=== PATIENT | male | born 1950 ===

== ENCOUNTER 2022-04-03 16:47 | Inpatient (IN) ==
[2022-04-03] MEDS ORDERED: hydrALAZINE 20 MG/1 ML VIAL IV PRN (22:01)
[2022-04-03] MEDS ORDERED: ONDANSETRON 4 MG/2 ML VIAL IV PRN (22:01)
[2022-04-03] MEDS ORDERED: GLUCAGON 1 MG VIAL IM PRN (22:01)
[2022-04-03] MEDS ORDERED: DEXTROSE 10% 250 ML BAG IV PRN (22:18)
[2022-04-03 22:46] LABS: Basophils # 0.1 10*3/uL (0.0-0.2); Basophils % 0.4 % (0.0-0.8); Eosinophils # 0.1 10*3/uL (0.0-0.87); Eosinophils % 0.4 % (0.00-10.9); Hematocrit 24.5 VOL% (42.0-52.0); Hemoglobin 8.1 GM/DL (14.0-18.0); Immature Granulocytes % 1.3 %; Immature Granulocytes Absolute 0.18 #; Lymphocytes # 1.2 10*3/uL (1.4-4.0); Lymphocytes % 8.5 % (21.2-54.2); Mean Corpuscular HGB Conc 33.1 GM/DL (32-36); Mean Corpuscular Volume 83.1 FL (87-102); Mean Platelet Volume 13.4 FL (9.6-12.0); Monocytes # 0.9 10*3/uL (0.11-0.8); Monocytes % 6.5 % (1.7-12.7); Neutrophils % 82.9 % (38.7-73.9); Platelet Count 141 T/CUMM (130-400); Red Blood Count 2.95 MC/CUMM (3.8-5.5); Red Cell Distribution Width 15.3 % (9.3-17.3); White Blood Count 14.3 T/CUMM (4-12)
[2022-04-03] MEDS: SODIUM CHLORIDE 0.9% 1,000 ML IV SCH (22:48)
[2022-04-03 23:10] LABS: Alanine Aminotransferase 11 U/L (16-61); Albumin 1.9 G/DL (3.4-5.0); Alkaline Phosphatase 94 U/L (45-117); Aspartate Amino Transferase 16 U/L (0-37); Bilirubin,Total < 0.39 MG/DL (0.20-1.00); Blood Urea Nitrogen 35 MG/DL (7-18); Calcium 8.1 MG/DL (8.5-10.1); Carbon Dioxide 19 MMOL/L (21-32); Chloride 113 MMOL/L (98-107); Glucose 103 MG/DL (74-106); Osmolality,Calculated 286.4 MOS/KG (273-304); Potassium 3.8 MMOL/L (3.5-5.1); Sodium 140 MMOL/L (136-145); Total Protein 6.6 G/DL (6.4-8.2)
[2022-04-03] MEDS: HEPARIN 5,000 UNIT/1 ML VIAL SUBCUT SCH (23:40)
[2022-04-04] MEDS ORDERED: VANCOMYCIN INJ 1,000 MG in SODIUM CHLORIDE 0.9% 250 ML IV ONE (04:00)
[2022-04-04] MEDS: LEVOTHYROXINE 50 MCG TABLET PO SCH (05:27)
[2022-04-04] MEDS: PIPERACILLIN/TAZOBACTAM 3.375 MG in SODIUM CHLORIDE 0.9% 100 ML IV SCH ×2 (05:27→18:02)
[2022-04-04 05:52] LABS: Basophils # 0.1 10*3/uL (0.0-0.2); Basophils % 0.4 % (0.0-0.8); Eosinophils # 0.1 10*3/uL (0.0-0.87); Eosinophils % 0.8 % (0.00-10.9); Hematocrit 26.5 VOL% (42.0-52.0); Hemoglobin 8.8 GM/DL (14.0-18.0); Immature Granulocytes % 1.7 %; Immature Granulocytes Absolute 0.26 #; Lymphocytes # 1.2 10*3/uL (1.4-4.0); Lymphocytes % 7.8 % (21.2-54.2); Mean Corpuscular HGB Conc 33.2 GM/DL (32-36); Mean Corpuscular Volume 83.9 FL (87-102); Mean Platelet Volume 13.8 FL (9.6-12.0); Monocytes # 0.8 10*3/uL (0.11-0.8); Monocytes % 5.1 % (1.7-12.7); Neutrophils % 84.2 % (38.7-73.9); Platelet Count 153 T/CUMM (130-400); Red Blood Count 3.16 MC/CUMM (3.8-5.5); Red Cell Distribution Width 15.4 % (9.3-17.3); White Blood Count 15.6 T/CUMM (4-12)
[2022-04-04 06:13] LABS: Folate 14.65 NG/ML (5.38-24.0); Vitamin B12 387 PG/ML (211-911)
[2022-04-04 07:03] LABS: Sedimentation Rate-Westergren 126 MM/HR (0-20)
[2022-04-04 08:41] LABS: Free T4 (Free Thyroxine) 0.94 NG/DL (0.76-1.46)
[2022-04-04] MEDS: INSULIN REGULAR 100 UNIT/ML SUBCUT SCH ×4 (08:43→20:42)
[2022-04-04] MEDS: METOPROLOL TARTRATE 50 MG TABLET PO SCH (08:49)
[2022-04-04] MEDS: SODIUM BICARBONATE 650 MG TABLET PO SCH ×2 (08:49→20:37)
[2022-04-04] MEDS: DOCUSATE SODIUM 100 MG CAPSULE PO SCH ×2 (08:49→20:37)
[2022-04-04] MEDS: ASPIRIN EC 81 MG TABLET PO SCH (08:49)
[2022-04-04] MEDS: MULTIVITAMIN (CENTRUM) TABLET PO SCH (08:49)
[2022-04-04] MEDS: calcitrioL 0.25 MCG CAPSULE PO SCH (08:49)
[2022-04-04] MEDS: amLODIPine 5 MG TABLET PO SCH (08:49)
[2022-04-04] MEDS: PANTOPRAZOLE 40 MG TABLET PO SCH (08:49)
[2022-04-04 14:33] LABS: Calcium 8.4 MG/DL (8.5-10.1); Osmolality,Calculated 287.5 MOS/KG (273-304); Potassium 4.2 MMOL/L (3.5-5.1)
[2022-04-04] MEDS ORDERED: LIDOCAINE 2% 5 ML VIAL ONE (16:05)
[2022-04-04] MEDS ORDERED: ONDANSETRON 4 MG/2 ML VIAL ONE (16:05)
[2022-04-04] MEDS ORDERED: propofoL 200 MG/20 ML VIAL IV ONE (16:05)
[2022-04-04] MEDS ORDERED: DEXAMETHASONE 4 MG/1 ML VIAL ONE (16:05)
[2022-04-04] MEDS ORDERED: SEVOFLURANE 1 UNIT/15 MINUTE INH ONE ×2 (16:05→16:57)
[2022-04-04] MEDS ORDERED: fentaNYL 100 MCG/2 ML VIAL ONE (16:06)
[2022-04-04] MEDS ORDERED: PHENYLEPHRINE 1 MG/10 ML SYRINGE IV ONE ×3 (16:29→16:57)
[2022-04-04] MEDS ORDERED: ACETAMINOPHEN INJ 1,000 MG/100 ML VIAL IV ONE (16:42)
[2022-04-04] MEDS ORDERED: GLUCAGON 1 MG VIAL IM PRN (18:50)
[2022-04-04] MEDS ORDERED: DEXTROSE 10% 250 ML BAG IV PRN (18:54)
[2022-04-04] MEDS: SIMVASTATIN 20 MG TABLET PO SCH (20:37)
[2022-04-04] MEDS ORDERED: INSULIN GLARGINE 100 UNIT/ML SUBCUT SCH ×3 (21:00)
[2022-04-05] MEDS: INSULIN REGULAR 100 UNIT/ML SUBCUT SCH ×6 (00:13→21:15)
[2022-04-05] MEDS ORDERED: VANCOMYCIN INJ 1,000 MG in SODIUM CHLORIDE 0.9% 250 ML IV PRN (04:00)
[2022-04-05] MEDS: PIPERACILLIN/TAZOBACTAM 3.375 MG in SODIUM CHLORIDE 0.9% 100 ML IV SCH ×2 (04:19→17:46)
[2022-04-05 04:32] LABS: Basophils % 0.1 % (0.0-0.8); Hematocrit 27.7 VOL% (42.0-52.0); Immature Granulocytes % 1.5 %; Immature Granulocytes Absolute 0.23 #; Lymphocytes # 0.7 10*3/uL (1.4-4.0); Lymphocytes % 4.6 % (21.2-54.2); Mean Corpuscular HGB Conc 32.5 GM/DL (32-36); Mean Corpuscular Volume 84.5 FL (87-102); Mean Platelet Volume 13.7 FL (9.6-12.0); Monocytes # 0.3 10*3/uL (0.11-0.8); Neutrophils % 91.8 % (38.7-73.9); Platelet Count 159 T/CUMM (130-400); Red Blood Count 3.28 MC/CUMM (3.8-5.5); Red Cell Distribution Width 15.8 % (9.3-17.3); White Blood Count 15.3 T/CUMM (4-12)
[2022-04-05 04:52] LABS: Calcium 7.8 MG/DL (8.5-10.1); Potassium 4.3 MMOL/L (3.5-5.1)
[2022-04-05 04:56] LABS: Hypochromia Slight; Lymphocytes 8 % (20-55); Microcytosis Slight; Platelet Estimate Adequate; Total Cells Counted 100
[2022-04-05] MEDS: LEVOTHYROXINE 50 MCG TABLET PO SCH (05:20)
[2022-04-05] MEDS: INSULIN GLARGINE 100 UNIT/ML SUBCUT SCH (09:16)
[2022-04-05] MEDS: PANTOPRAZOLE 40 MG TABLET PO SCH (09:18)
[2022-04-05] MEDS: MULTIVITAMIN (CENTRUM) TABLET PO SCH (09:18)
[2022-04-05] MEDS: SODIUM BICARBONATE 650 MG TABLET PO SCH ×2 (09:18→21:15)
[2022-04-05] MEDS: ASPIRIN EC 81 MG TABLET PO SCH (09:18)
[2022-04-05] MEDS: METOPROLOL TARTRATE 50 MG TABLET PO SCH (09:18)
[2022-04-05] MEDS: amLODIPine 5 MG TABLET PO SCH (09:18)
[2022-04-05] MEDS: DOCUSATE SODIUM 100 MG CAPSULE PO SCH ×2 (09:18→21:15)
[2022-04-05] MEDS: calcitrioL 0.25 MCG CAPSULE PO SCH (09:19)
[2022-04-05 09:53] LABS: Hemoglobin A1 (Alkaline) 97.9 % (96.5-98.5); Hemoglobin A2 (Alkaline) 2.1 % (1.5-3.5)
[2022-04-05] MEDS ORDERED: VANCOMYCIN INJ 1,000 MG in SODIUM CHLORIDE 0.9% 250 ML IV ONE (11:00)
[2022-04-05] MEDS: SODIUM CHLORIDE 0.9% 1,000 ML IV SCH ×2 (12:13→14:26)
[2022-04-05] MEDS: SODIUM HYPOCHLORITE 0.25% IRRIG 473 ML BOTTLE TOP SCH (19:24)
[2022-04-05] MEDS ORDERED: INSULIN DETEMIR 100 UNIT/ML SUBCUT SCH (21:00)
[2022-04-05] MEDS: SIMVASTATIN 20 MG TABLET PO SCH (21:15)
[2022-04-06 04:56] LABS: Basophils # 0.1 10*3/uL (0.0-0.2); Basophils % 0.3 % (0.0-0.8); Eosinophils # 0.1 10*3/uL (0.0-0.87); Eosinophils % 0.8 % (0.00-10.9); Hematocrit 27.5 VOL% (42.0-52.0); Hemoglobin 8.9 GM/DL (14.0-18.0); Immature Granulocytes % 1.8 %; Immature Granulocytes Absolute 0.31 #; Lymphocytes # 1.4 10*3/uL (1.4-4.0); Lymphocytes % 8.4 % (21.2-54.2); Mean Corpuscular HGB Conc 32.4 GM/DL (32-36); Mean Corpuscular Volume 83.6 FL (87-102); Mean Platelet Volume 12.8 FL (9.6-12.0); Monocytes # 0.7 10*3/uL (0.11-0.8); Monocytes % 4.2 % (1.7-12.7); Neutrophils % 84.5 % (38.7-73.9); Platelet Count 191 T/CUMM (130-400); Red Blood Count 3.29 MC/CUMM (3.8-5.5); White Blood Count 16.9 T/CUMM (4-12)
[2022-04-06 05:14] LABS: Risk Ratio 10.55; VLDL Cholesterol 56.8 MG/DL
[2022-04-06 05:15] LABS: % Iron Saturation 19.9 % (18-50)
[2022-04-06 05:21] LABS: Calcium 8.1 MG/DL (8.5-10.1); Osmolality,Calculated 292.4 MOS/KG (273-304); Potassium 3.7 MMOL/L (3.5-5.1)
[2022-04-06] MEDS: PIPERACILLIN/TAZOBACTAM 3.375 MG in SODIUM CHLORIDE 0.9% 100 ML IV SCH ×2 (05:46→18:16)
[2022-04-06] MEDS: SODIUM CHLORIDE 0.9% 1,000 ML IV SCH (05:46)
[2022-04-06] MEDS: LEVOTHYROXINE 50 MCG TABLET PO SCH (05:46)
[2022-04-06 06:18] LABS: Mucus,Urine Occasional /LPF (Occasional); RBC,Urine 1 /HPF (0-4); Sperm,Urine Occasional /HPF (Negative); Squamous Epithelial Cell,Urine Occasional /HPF (0-10)
[2022-04-06 06:29] LABS: Glucose,Urine (UA) 100 mg/dL (Negative); Ketones,Urine Negative (Negative); Nitrite,Urine Negative (Negative); Protein,Urine >=300 mg/dL (Negative); Urine Appearance Clear (Clear); Urine Color Yellow (Yellow); Urine pH 5.5 (4.5-8.0)
[2022-04-06 06:30] LABS: Bilirubin,Urine Negative (Negative); Blood, Urine Trace mg/dL (Negative); Urine Urobilinogen 0.2 eU/dL (<2.0)
[2022-04-06] MEDS: INSULIN REGULAR 100 UNIT/ML SUBCUT SCH ×4 (07:42→20:40)
[2022-04-06] MEDS: PANTOPRAZOLE 40 MG TABLET PO SCH (09:02)
[2022-04-06] MEDS: ASPIRIN EC 81 MG TABLET PO SCH (09:03)
[2022-04-06] MEDS: METOPROLOL TARTRATE 50 MG TABLET PO SCH (09:03)
[2022-04-06] MEDS: amLODIPine 5 MG TABLET PO SCH (09:03)
[2022-04-06] MEDS: FERROUS SULFATE 325 MG TABLET PO SCH ×2 (09:03→20:39)
[2022-04-06] MEDS: calcitrioL 0.25 MCG CAPSULE PO SCH (09:03)
[2022-04-06] MEDS: MULTIVITAMIN (CENTRUM) TABLET PO SCH (09:03)
[2022-04-06] MEDS: DOCUSATE SODIUM 100 MG CAPSULE PO SCH ×2 (09:03→20:42)
[2022-04-06] MEDS: SODIUM HYPOCHLORITE 0.25% IRRIG 473 ML BOTTLE TOP SCH (09:03)
[2022-04-06] MEDS: SODIUM BICARBONATE 650 MG TABLET PO SCH ×3 (09:04→20:39)
[2022-04-06] MEDS: INSULIN GLARGINE 100 UNIT/ML SUBCUT SCH (09:05)
[2022-04-06] MEDS ORDERED: SODIUM CHLORIDE 0.45% 1,000 ML IV SCH (11:30)
[2022-04-06] MEDS ORDERED: DIAZEPAM 5 MG TABLET PO ONE (12:00)
[2022-04-06] MEDS ORDERED: MIDAZOLAM 2 MG/2 ML VIAL IV ONE (12:00)
[2022-04-06] MEDS ORDERED: fentaNYL 100 MCG/2 ML VIAL IV ONE (12:00)
[2022-04-06] MEDS ORDERED: HEPARIN/NACL 0.9% 2 UNITS/ML 4,000 UNIT/2,000 ML BAG IV ONE (13:22)
[2022-04-06] MEDS ORDERED: HEPARIN 5,000 UNIT/1 ML VIAL ONE (13:30)
[2022-04-06] MEDS ORDERED: HEPARIN 5,000 UNIT/1 ML VIAL IV ONE (15:00)
[2022-04-06] MEDS ORDERED: HEPARIN 1,000 UNIT/1 ML VIAL ONE (15:30)
[2022-04-06] MEDS ORDERED: HEPARIN 5,000 UNIT/1 ML VIAL IV STA (15:30)
[2022-04-06] MEDS: PIPERACILLIN/TAZOBACTAM 3,375 MG in SODIUM CHLORIDE 0.9% 100 ML IV SCH (17:50)
[2022-04-06] MEDS: SIMVASTATIN 20 MG TABLET PO SCH (20:39)
[2022-04-07] MEDS: LEVOTHYROXINE 50 MCG TABLET PO SCH (05:19)
[2022-04-07 05:21] LABS: Protein/Creatinine Ratio,Urine 4.8 RATIO
[2022-04-07 05:54] LABS: Basophils # 0.1 10*3/uL (0.0-0.2); Basophils % 0.6 % (0.0-0.8); Eosinophils # 0.3 10*3/uL (0.0-0.87); Eosinophils % 2.4 % (0.00-10.9); Hematocrit 25.2 VOL% (42.0-52.0); Hemoglobin 8.1 GM/DL (14.0-18.0); Immature Granulocytes Absolute 0.48 #; Lymphocytes % 8.5 % (21.2-54.2); Mean Corpuscular HGB Conc 32.1 GM/DL (32-36); Mean Corpuscular Volume 84.3 FL (87-102); Mean Platelet Volume 12.8 FL (9.6-12.0); Monocytes # 0.5 10*3/uL (0.11-0.8); Monocytes % 4.2 % (1.7-12.7); Neutrophils % 80.3 % (38.7-73.9); Platelet Count 184 T/CUMM (130-400); Red Blood Count 2.99 MC/CUMM (3.8-5.5); Red Cell Distribution Width 16.1 % (9.3-17.3)
[2022-04-07] MEDS: PIPERACILLIN/TAZOBACTAM 3,375 MG in SODIUM CHLORIDE 0.9% 100 ML IV SCH ×2 (06:08→17:54)
[2022-04-07 06:13] LABS: Phosphorous 3.4 MG/DL (2.5-4.9); Uric Acid 7.6 MG/DL (3.5-7.2)
[2022-04-07 07:22] LABS: Hepatitis B Surface Ag Result Non-Reactive (NonReactive); Hepatitis C Virus Ab Quant 0.24 Index; Hepatitis C Virus Ab Result Non-Reactive (NonReactive)
[2022-04-07 07:39] LABS: Calcium 7.6 MG/DL (8.5-10.1); Potassium 3.6 MMOL/L (3.5-5.1)
[2022-04-07] MEDS: INSULIN REGULAR 100 UNIT/ML SUBCUT SCH ×4 (07:54→20:35)
[2022-04-07] MEDS ORDERED: VANCOMYCIN INJ 1,000 MG in SODIUM CHLORIDE 0.9% 250 ML IV ONE (09:00)
[2022-04-07] MEDS: amLODIPine 5 MG TABLET PO SCH (09:56)
[2022-04-07] MEDS: METOPROLOL TARTRATE 50 MG TABLET PO SCH (09:56)
[2022-04-07] MEDS: INSULIN GLARGINE 100 UNIT/ML SUBCUT SCH (13:22)
[2022-04-07] MEDS: DOCUSATE SODIUM 100 MG CAPSULE PO SCH ×2 (13:46→20:36)
[2022-04-07] MEDS: FERROUS SULFATE 325 MG TABLET PO SCH ×2 (13:46→20:36)
[2022-04-07] MEDS: SODIUM BICARBONATE 650 MG TABLET PO SCH ×3 (13:47→20:35)
[2022-04-07] MEDS: SODIUM HYPOCHLORITE 0.25% IRRIG 473 ML BOTTLE TOP SCH (14:00)
[2022-04-07] MEDS: MULTIVITAMIN (CENTRUM) TABLET PO SCH (14:15)
[2022-04-07] MEDS: PANTOPRAZOLE 40 MG TABLET PO SCH (14:15)
[2022-04-07] MEDS: calcitrioL 0.25 MCG CAPSULE PO SCH (14:15)
[2022-04-07] MEDS: ASPIRIN EC 81 MG TABLET PO SCH (14:15)
[2022-04-07] MEDS: POLYETHYLENE GLYCOL POWDER 17 GM PACK PO SCH (14:48)
[2022-04-07] MEDS: SIMVASTATIN 40 MG TABLET PO SCH (20:35)
[2022-04-07] MEDS: HEPARIN 5,000 UNIT/1 ML VIAL SUBCUT SCH (23:25)
[2022-04-08] MEDS: LEVOTHYROXINE 50 MCG TABLET PO SCH (05:28)
[2022-04-08] MEDS: PIPERACILLIN/TAZOBACTAM 3,375 MG in SODIUM CHLORIDE 0.9% 100 ML IV SCH ×2 (05:28→17:31)
[2022-04-08 05:45] LABS: Basophils # 0.1 10*3/uL (0.0-0.2); Basophils % 0.6 % (0.0-0.8); Eosinophils # 0.2 10*3/uL (0.0-0.87); Eosinophils % 1.9 % (0.00-10.9); Hematocrit 23.8 VOL% (42.0-52.0); Hemoglobin 7.6 GM/DL (14.0-18.0); Immature Granulocytes % 3.1 %; Immature Granulocytes Absolute 0.33 #; Lymphocytes # 1.2 10*3/uL (1.4-4.0); Mean Corpuscular HGB Conc 31.9 GM/DL (32-36); Mean Corpuscular Volume 85.6 FL (87-102); Mean Platelet Volume 12.5 FL (9.6-12.0); Monocytes # 0.5 10*3/uL (0.11-0.8); Monocytes % 5.1 % (1.7-12.7); Neutrophils % 78.3 % (38.7-73.9); Platelet Count 192 T/CUMM (130-400); Red Blood Count 2.78 MC/CUMM (3.8-5.5); White Blood Count 10.7 T/CUMM (4-12)
[2022-04-08 06:10] LABS: Calcium 7.8 MG/DL (8.5-10.1); Potassium 3.9 MMOL/L (3.5-5.1)
[2022-04-08] MEDS: INSULIN REGULAR 100 UNIT/ML SUBCUT SCH ×4 (07:41→22:20)
[2022-04-08] MEDS: FERROUS SULFATE 325 MG TABLET PO SCH ×2 (09:36→22:12)
[2022-04-08] MEDS: calcitrioL 0.25 MCG CAPSULE PO SCH (09:36)
[2022-04-08] MEDS: METOPROLOL TARTRATE 50 MG TABLET PO SCH (09:36)
[2022-04-08] MEDS: ASPIRIN EC 81 MG TABLET PO SCH (09:36)
[2022-04-08] MEDS: PANTOPRAZOLE 40 MG TABLET PO SCH (09:36)
[2022-04-08] MEDS: amLODIPine 10 MG TABLET PO SCH (09:36)
[2022-04-08] MEDS: DOCUSATE SODIUM 100 MG CAPSULE PO SCH ×2 (09:36→22:12)
[2022-04-08] MEDS: MULTIVITAMIN (CENTRUM) TABLET PO SCH (09:36)
[2022-04-08] MEDS: SODIUM BICARBONATE 650 MG TABLET PO SCH ×3 (09:36→22:13)
[2022-04-08] MEDS: SODIUM HYPOCHLORITE 0.25% IRRIG 473 ML BOTTLE TOP SCH (09:36)
[2022-04-08] MEDS: INSULIN GLARGINE 100 UNIT/ML SUBCUT SCH (09:37)
[2022-04-08] MEDS: POLYETHYLENE GLYCOL POWDER 17 GM PACK PO SCH (09:37)
[2022-04-08] MEDS: HEPARIN 5,000 UNIT/1 ML VIAL SUBCUT SCH ×2 (13:10→22:13)
[2022-04-08] MEDS: SIMVASTATIN 40 MG TABLET PO SCH (22:12)
[2022-04-09 05:27] LABS: Basophils # 0.1 10*3/uL (0.0-0.2); Basophils % 0.5 % (0.0-0.8); Eosinophils # 0.2 10*3/uL (0.0-0.87); Hematocrit 23.2 VOL% (42.0-52.0); Hemoglobin 7.5 GM/DL (14.0-18.0); Immature Granulocytes % 3.7 %; Lymphocytes % 9.3 % (21.2-54.2); Mean Corpuscular HGB Conc 32.3 GM/DL (32-36); Mean Corpuscular Volume 85.3 FL (87-102); Monocytes # 0.5 10*3/uL (0.11-0.8); Monocytes % 4.9 % (1.7-12.7); Neutrophils % 79.6 % (38.7-73.9); Platelet Count 201 T/CUMM (130-400); Red Blood Count 2.72 MC/CUMM (3.8-5.5); White Blood Count 10.8 T/CUMM (4-12)
[2022-04-09 05:35] LABS: Calcium 7.9 MG/DL (8.5-10.1); Osmolality,Calculated 291.7 MOS/KG (273-304); Potassium 3.6 MMOL/L (3.5-5.1)
[2022-04-09] MEDS: LEVOTHYROXINE 50 MCG TABLET PO SCH (06:02)
[2022-04-09] MEDS: PIPERACILLIN/TAZOBACTAM 3,375 MG in SODIUM CHLORIDE 0.9% 100 ML IV SCH ×2 (06:02→17:30)
[2022-04-09] MEDS: POLYETHYLENE GLYCOL POWDER 17 GM PACK PO SCH (09:10)
[2022-04-09] MEDS: FERROUS SULFATE 325 MG TABLET PO SCH ×2 (09:11→21:31)
[2022-04-09] MEDS: ASPIRIN EC 81 MG TABLET PO SCH (09:11)
[2022-04-09] MEDS: MULTIVITAMIN (CENTRUM) TABLET PO SCH (09:11)
[2022-04-09] MEDS: PANTOPRAZOLE 40 MG TABLET PO SCH (09:11)
[2022-04-09] MEDS: INSULIN GLARGINE 100 UNIT/ML SUBCUT SCH (09:11)
[2022-04-09] MEDS: METOPROLOL TARTRATE 50 MG TABLET PO SCH (09:11)
[2022-04-09] MEDS: calcitrioL 0.25 MCG CAPSULE PO SCH (09:12)
[2022-04-09] MEDS: amLODIPine 10 MG TABLET PO SCH (09:12)
[2022-04-09] MEDS: DOCUSATE SODIUM 100 MG CAPSULE PO SCH ×2 (09:12→21:31)
[2022-04-09] MEDS: SODIUM BICARBONATE 650 MG TABLET PO SCH ×3 (09:12→21:31)
[2022-04-09] MEDS ORDERED: VANCOMYCIN INJ 1,000 MG in SODIUM CHLORIDE 0.9% 250 ML IV ONE (10:00)
[2022-04-09] MEDS: SODIUM HYPOCHLORITE 0.25% IRRIG 473 ML BOTTLE TOP SCH (10:36)
[2022-04-09] MEDS: INSULIN REGULAR 100 UNIT/ML SUBCUT SCH ×4 (10:36→21:35)
[2022-04-09] MEDS: HEPARIN 5,000 UNIT/1 ML VIAL SUBCUT SCH ×2 (12:53→22:24)
[2022-04-09] MEDS: SIMVASTATIN 40 MG TABLET PO SCH (22:24)
[2022-04-10] MEDS: PIPERACILLIN/TAZOBACTAM 3,375 MG in SODIUM CHLORIDE 0.9% 100 ML IV SCH ×2 (05:04→18:16)
[2022-04-10] MEDS: LEVOTHYROXINE 50 MCG TABLET PO SCH (05:04)
[2022-04-10 05:49] LABS: Basophils % 0.4 % (0.0-0.8); Eosinophils # 0.2 10*3/uL (0.0-0.87); Eosinophils % 2.1 % (0.00-10.9); Hematocrit 22.9 VOL% (42.0-52.0); Hemoglobin 7.3 GM/DL (14.0-18.0); Immature Granulocytes % 3.3 %; Immature Granulocytes Absolute 0.31 #; Lymphocytes % 11.1 % (21.2-54.2); Mean Corpuscular HGB Conc 31.9 GM/DL (32-36); Mean Corpuscular Volume 85.1 FL (87-102); Mean Platelet Volume 12.1 FL (9.6-12.0); Monocytes # 0.6 10*3/uL (0.11-0.8); Monocytes % 6.3 % (1.7-12.7); Neutrophils % 76.8 % (38.7-73.9); Platelet Count 204 T/CUMM (130-400); Red Blood Count 2.69 MC/CUMM (3.8-5.5); Red Cell Distribution Width 16.1 % (9.3-17.3); White Blood Count 9.4 T/CUMM (4-12)
[2022-04-10 06:04] LABS: Calcium 8.1 MG/DL (8.5-10.1); Potassium 3.8 MMOL/L (3.5-5.1)
[2022-04-10] MEDS: INSULIN REGULAR 100 UNIT/ML SUBCUT SCH ×4 (08:08→21:46)
[2022-04-10] MEDS: INSULIN GLARGINE 100 UNIT/ML SUBCUT SCH (09:47)
[2022-04-10] MEDS: MULTIVITAMIN (CENTRUM) TABLET PO SCH (09:58)
[2022-04-10] MEDS: METOPROLOL TARTRATE 50 MG TABLET PO SCH (09:58)
[2022-04-10] MEDS: ASPIRIN EC 81 MG TABLET PO SCH (09:58)
[2022-04-10] MEDS: amLODIPine 10 MG TABLET PO SCH (09:58)
[2022-04-10] MEDS: DOCUSATE SODIUM 100 MG CAPSULE PO SCH ×2 (09:58→21:46)
[2022-04-10] MEDS: SODIUM HYPOCHLORITE 0.25% IRRIG 473 ML BOTTLE TOP SCH (09:58)
[2022-04-10] MEDS: PANTOPRAZOLE 40 MG TABLET PO SCH (09:58)
[2022-04-10] MEDS: SODIUM BICARBONATE 650 MG TABLET PO SCH ×3 (09:58→21:46)
[2022-04-10] MEDS: FERROUS SULFATE 325 MG TABLET PO SCH ×2 (09:58→21:46)
[2022-04-10] MEDS: HEPARIN 5,000 UNIT/1 ML VIAL SUBCUT SCH (10:01)
[2022-04-10] MEDS: calcitrioL 0.25 MCG CAPSULE PO SCH (10:01)
[2022-04-10] MEDS: POLYETHYLENE GLYCOL POWDER 17 GM PACK PO SCH (10:01)
[2022-04-10] MEDS ORDERED: SODIUM CHLORIDE 0.9% 1,000 ML IV PRN (12:34)
[2022-04-10] MEDS: SIMVASTATIN 40 MG TABLET PO SCH (21:46)
[2022-04-11 05:21] LABS: Basophils # 0.1 10*3/uL (0.0-0.2); Basophils % 0.5 % (0.0-0.8); Eosinophils # 0.2 10*3/uL (0.0-0.87); Eosinophils % 1.9 % (0.00-10.9); Hematocrit 28.4 VOL% (42.0-52.0); Hemoglobin 9.3 GM/DL (14.0-18.0); Immature Granulocytes Absolute 0.38 #; Lymphocytes % 10.6 % (21.2-54.2); Mean Corpuscular HGB Conc 32.7 GM/DL (32-36); Mean Platelet Volume 11.6 FL (9.6-12.0); Monocytes # 0.7 10*3/uL (0.11-0.8); Monocytes % 7.8 % (1.7-12.7); Neutrophils % 75.2 % (38.7-73.9); Platelet Count 216 T/CUMM (130-400); Red Blood Count 3.34 MC/CUMM (3.8-5.5); Red Cell Distribution Width 15.7 % (9.3-17.3); White Blood Count 9.4 T/CUMM (4-12)
[2022-04-11 05:32] LABS: Calcium 8.3 MG/DL (8.5-10.1); Osmolality,Calculated 285.1 MOS/KG (273-304); Potassium 3.8 MMOL/L (3.5-5.1)
[2022-04-11 05:49] LABS: Platelet Estimate Adequate; Polychromasia 1+
[2022-04-11] MEDS: PIPERACILLIN/TAZOBACTAM 3,375 MG in SODIUM CHLORIDE 0.9% 100 ML IV SCH ×2 (06:01→18:26)
[2022-04-11] MEDS: LEVOTHYROXINE 50 MCG TABLET PO SCH (06:01)
[2022-04-11] MEDS: INSULIN REGULAR 100 UNIT/ML SUBCUT SCH ×4 (07:58→20:30)
[2022-04-11] MEDS: METOPROLOL TARTRATE 50 MG TABLET PO SCH (08:05)
[2022-04-11] MEDS: amLODIPine 10 MG TABLET PO SCH (08:05)
[2022-04-11] MEDS: calcitrioL 0.25 MCG CAPSULE PO SCH (08:05)
[2022-04-11] MEDS ORDERED: propofoL 200 MG/20 ML VIAL IV ONE (08:19)
[2022-04-11] MEDS ORDERED: fentaNYL 100 MCG/2 ML VIAL ONE (08:19)
[2022-04-11] MEDS ORDERED: LIDOCAINE 2% 5 ML VIAL ONE (08:19)
[2022-04-11] MEDS: POLYETHYLENE GLYCOL POWDER 17 GM PACK PO SCH (08:20)
[2022-04-11] MEDS ORDERED: BUPIVACAINE MPF 0.25% 10 ML VIAL ONE (08:28)
[2022-04-11] MEDS ORDERED: SODIUM CHLORIDE 0.9% 250 ML IV SCH (09:00)
[2022-04-11] MEDS ORDERED: SEVOFLURANE 1 UNIT/15 MINUTE INH ONE (09:29)
[2022-04-11] MEDS ORDERED: ALBUTEROL/IPRATROPIUM 3 ML NEB RESP TX ONE ×2 (09:41→09:43)
[2022-04-11] MEDS: ASPIRIN EC 81 MG TABLET PO SCH (10:37)
[2022-04-11] MEDS: SODIUM HYPOCHLORITE 0.25% IRRIG 473 ML BOTTLE TOP SCH (10:37)
[2022-04-11] MEDS: INSULIN GLARGINE 100 UNIT/ML SUBCUT SCH (10:37)
[2022-04-11] MEDS: SODIUM BICARBONATE 650 MG TABLET PO SCH ×3 (10:44→20:30)
[2022-04-11] MEDS: MULTIVITAMIN (CENTRUM) TABLET PO SCH (10:44)
[2022-04-11] MEDS: FERROUS SULFATE 325 MG TABLET PO SCH ×2 (10:44→20:30)
[2022-04-11] MEDS: PANTOPRAZOLE 40 MG TABLET PO SCH (10:45)
[2022-04-11] MEDS: DOCUSATE SODIUM 100 MG CAPSULE PO SCH ×2 (10:46→20:30)
[2022-04-11] MEDS: ACETAMINOPHEN 325 MG TABLET PO PRN ×2 (11:48→20:30)
[2022-04-11] MEDS ORDERED: VANCOMYCIN INJ 1,000 MG in SODIUM CHLORIDE 0.9% 250 ML IV ONE (13:00)
[2022-04-11] MEDS: SIMVASTATIN 40 MG TABLET PO SCH (20:30)
[2022-04-12 04:43] LABS: Basophils % 0.5 % (0.0-0.8); Eosinophils # 0.2 10*3/uL (0.0-0.87); Eosinophils % 2.8 % (0.00-10.9); Hematocrit 27.1 VOL% (42.0-52.0); Hemoglobin 8.8 GM/DL (14.0-18.0); Immature Granulocytes % 3.7 %; Immature Granulocytes Absolute 0.28 #; Lymphocytes # 0.9 10*3/uL (1.4-4.0); Lymphocytes % 11.3 % (21.2-54.2); Mean Corpuscular HGB Conc 32.5 GM/DL (32-36); Mean Corpuscular Volume 86.3 FL (87-102); Mean Platelet Volume 11.6 FL (9.6-12.0); Monocytes # 0.6 10*3/uL (0.11-0.8); Neutrophils % 73.7 % (38.7-73.9); Platelet Count 229 T/CUMM (130-400); Red Blood Count 3.14 MC/CUMM (3.8-5.5); Red Cell Distribution Width 15.7 % (9.3-17.3); White Blood Count 7.6 T/CUMM (4-12)
[2022-04-12 05:12] LABS: Albumin 1.9 G/DL (3.4-5.0); Bilirubin,Total 0.4 MG/DL (0.20-1.00); Calcium 8.2 MG/DL (8.5-10.1); Osmolality,Calculated 284.3 MOS/KG (273-304); Total Protein 7.1 G/DL (6.4-8.2)
[2022-04-12] MEDS: LEVOTHYROXINE 50 MCG TABLET PO SCH (05:49)
[2022-04-12] MEDS: PIPERACILLIN/TAZOBACTAM 3,375 MG in SODIUM CHLORIDE 0.9% 100 ML IV SCH (05:49)
[2022-04-12] MEDS: INSULIN REGULAR 100 UNIT/ML SUBCUT SCH ×3 (07:35→15:58)
[2022-04-12] MEDS: INSULIN GLARGINE 100 UNIT/ML SUBCUT SCH (10:17)
[2022-04-12] MEDS: MULTIVITAMIN (CENTRUM) TABLET PO SCH (10:17)
[2022-04-12] MEDS: SODIUM HYPOCHLORITE 0.25% IRRIG 473 ML BOTTLE TOP SCH (10:17)
[2022-04-12] MEDS: FERROUS SULFATE 325 MG TABLET PO SCH ×2 (10:17→22:30)
[2022-04-12] MEDS: DOCUSATE SODIUM 100 MG CAPSULE PO SCH ×2 (10:17→22:30)
[2022-04-12] MEDS: ASPIRIN EC 81 MG TABLET PO SCH (10:17)
[2022-04-12] MEDS: SODIUM BICARBONATE 650 MG TABLET PO SCH ×3 (10:18→22:30)
[2022-04-12] MEDS: HEPARIN 5,000 UNIT/1 ML VIAL SUBCUT SCH (10:18)
[2022-04-12] MEDS: amLODIPine 10 MG TABLET PO SCH (10:18)
[2022-04-12] MEDS: POLYETHYLENE GLYCOL POWDER 17 GM PACK PO SCH (10:18)
[2022-04-12] MEDS: PANTOPRAZOLE 40 MG TABLET PO SCH (10:18)
[2022-04-12] MEDS: calcitrioL 0.25 MCG CAPSULE PO SCH (10:18)
[2022-04-12] MEDS: METOPROLOL TARTRATE 50 MG TABLET PO SCH (10:18)
[2022-04-12 14:10] LABS: Hematocrit 26.7 VOL% (42.0-52.0); Hemoglobin 8.8 GM/DL (14.0-18.0)
[2022-04-12] MEDS: SIMVASTATIN 40 MG TABLET PO SCH (22:30)
[2022-04-13] MEDS: INSULIN REGULAR 100 UNIT/ML SUBCUT SCH ×5 (01:02→16:24)
[2022-04-13] MEDS: HEPARIN 5,000 UNIT/1 ML VIAL SUBCUT SCH ×2 (01:03→12:45)
[2022-04-13] MEDS: LEVOTHYROXINE 50 MCG TABLET PO SCH (05:01)
[2022-04-13 05:16] LABS: Basophils # 0.1 10*3/uL (0.0-0.2); Basophils % 0.7 % (0.0-0.8); Eosinophils # 0.3 10*3/uL (0.0-0.87); Hematocrit 25.1 VOL% (42.0-52.0); Hemoglobin 8.3 GM/DL (14.0-18.0); Immature Granulocytes % 2.2 %; Immature Granulocytes Absolute 0.18 #; Lymphocytes # 1.1 10*3/uL (1.4-4.0); Lymphocytes % 13.4 % (21.2-54.2); Mean Corpuscular HGB Conc 33.1 GM/DL (32-36); Mean Corpuscular Volume 85.7 FL (87-102); Mean Platelet Volume 11.4 FL (9.6-12.0); Monocytes # 0.6 10*3/uL (0.11-0.8); Monocytes % 7.6 % (1.7-12.7); Neutrophils % 73.1 % (38.7-73.9); Platelet Count 246 T/CUMM (130-400); Red Blood Count 2.93 MC/CUMM (3.8-5.5); Red Cell Distribution Width 15.7 % (9.3-17.3); White Blood Count 8.3 T/CUMM (4-12)
[2022-04-13 05:40] LABS: Calcium 8.2 MG/DL (8.5-10.1); Osmolality,Calculated 281.5 MOS/KG (273-304)
[2022-04-13] MEDS: amLODIPine 10 MG TABLET PO SCH (08:51)
[2022-04-13] MEDS: PANTOPRAZOLE 40 MG TABLET PO SCH (08:52)
[2022-04-13] MEDS: SODIUM BICARBONATE 650 MG TABLET PO SCH ×2 (08:52→16:24)
[2022-04-13] MEDS: calcitrioL 0.25 MCG CAPSULE PO SCH (08:52)
[2022-04-13] MEDS: METOPROLOL TARTRATE 50 MG TABLET PO SCH (08:52)
[2022-04-13] MEDS: MULTIVITAMIN (CENTRUM) TABLET PO SCH (08:52)
[2022-04-13] MEDS: FERROUS SULFATE 325 MG TABLET PO SCH (08:52)
[2022-04-13] MEDS: ASPIRIN EC 81 MG TABLET PO SCH (08:53)
[2022-04-13] MEDS: INSULIN GLARGINE 100 UNIT/ML SUBCUT SCH (08:54)
[2022-04-13] MEDS: DOCUSATE SODIUM 100 MG CAPSULE PO SCH (08:56)
[2022-04-13] MEDS: SODIUM HYPOCHLORITE 0.25% IRRIG 473 ML BOTTLE TOP SCH (08:56)
[2022-04-13] MEDS: POLYETHYLENE GLYCOL POWDER 17 GM PACK PO SCH (08:56)
[2022-04-13 16:04] VITALS: BP 124/64
== END 2022-04-13 17:33 | disposition home health service (06) | DRG 240 ==
LOC: N.5E 20:41 → SUATTDRO 20:41
PROVIDERS: ADMIT Internal Medicine; ATTEND Emergency Medicine

== ENCOUNTER 2022-06-07 15:39 | Inpatient (IN) ==
[2022-06-07] MEDS ORDERED: DOCUSATE SODIUM 100 MG CAPSULE PO PRN (17:57)
[2022-06-07] MEDS ORDERED: GLUCAGON 1 MG VIAL IM PRN (17:57)
[2022-06-07] MEDS ORDERED: ACETAMINOPHEN 325 MG TABLET PO PRN (17:57)
[2022-06-07] MEDS ORDERED: traZODone 50 MG TABLET PO PRN (17:57)
[2022-06-07] MEDS ORDERED: ONDANSETRON 4 MG/2 ML VIAL IV PRN (17:57)
[2022-06-07] MEDS ORDERED: DEXTROSE 10% 250 ML BAG IV PRN (17:57)
[2022-06-07] MEDS ORDERED: hydrALAZINE 20 MG/1 ML VIAL IV PRN (17:57)
[2022-06-07] MEDS ORDERED: DEXTROSE 50% 25 GM/50 ML VIAL IV PRN (18:01)
[2022-06-07] MEDS: PIPERACILLIN/TAZOBACTAM 3,375 MG in SODIUM CHLORIDE 0.9% 100 ML IV SCH (18:36)
[2022-06-07] MEDS: INSULIN REGULAR 100 UNIT/ML SUBCUT SCH (20:07)
[2022-06-07] MEDS: HEPARIN 5,000 UNIT/1 ML VIAL SUBCUT SCH (20:52)
[2022-06-07] MEDS ORDERED: SODIUM CHLORIDE 0.9% 1,000 ML IV PRN (21:31)
[2022-06-07 22:16] LABS: Hematocrit 17.1 VOL% (42.0-52.0); Hemoglobin 5.1 GM/DL (14.0-18.0)
[2022-06-07] MEDS ORDERED: VANCOMYCIN INJ 1,000 MG in SODIUM CHLORIDE 0.9% 250 ML IV PRN (23:00)
[2022-06-08 05:03] LABS: Basophils # 0.1 10*3/uL (0.0-0.2); Basophils % 0.7 % (0.0-0.8); Eosinophils # 0.1 10*3/uL (0.0-0.87); Eosinophils % 1.2 % (0.00-10.9); Hematocrit 24.6 VOL% (42.0-52.0); Hemoglobin 7.7 GM/DL (14.0-18.0); Immature Granulocytes % 1.2 %; Immature Granulocytes Absolute 0.13 #; Lymphocytes # 1.1 10*3/uL (1.4-4.0); Lymphocytes % 9.7 % (21.2-54.2); Mean Corpuscular HGB Conc 31.3 GM/DL (32-36); Mean Corpuscular Volume 84.5 FL (87-102); Mean Platelet Volume 11.4 FL (9.6-12.0); Monocytes # 0.6 10*3/uL (0.11-0.8); Monocytes % 5.3 % (1.7-12.7); Neutrophils % 81.9 % (38.7-73.9); Platelet Count 253 T/CUMM (130-400); Red Blood Count 2.91 MC/CUMM (3.8-5.5); Red Cell Distribution Width 16.9 % (9.3-17.3); White Blood Count 11.2 T/CUMM (4-12)
[2022-06-08 05:27] LABS: Osmolality,Calculated 281.8 MOS/KG (273-304); Potassium 5.2 MMOL/L (3.5-5.1)
[2022-06-08] MEDS: PIPERACILLIN/TAZOBACTAM 3,375 MG in SODIUM CHLORIDE 0.9% 100 ML IV SCH ×2 (05:49→18:10)
[2022-06-08] MEDS: LEVOTHYROXINE 25 MCG TABLET PO SCH (05:49)
[2022-06-08] MEDS: INSULIN REGULAR 100 UNIT/ML SUBCUT SCH ×4 (07:50→21:10)
[2022-06-08] MEDS: ASPIRIN EC 81 MG TABLET PO SCH (09:07)
[2022-06-08] MEDS: HEPARIN 5,000 UNIT/1 ML VIAL SUBCUT SCH ×2 (09:08→21:10)
[2022-06-08] MEDS: SODIUM HYPOCHLORITE 0.25% IRRIG 473 ML BOTTLE TOP SCH (10:45)
[2022-06-08] MEDS ORDERED: SIMVASTATIN 40 MG TABLET PO SCH (21:00)
[2022-06-09 05:06] LABS: Basophils # 0.1 10*3/uL (0.0-0.2); Basophils % 0.6 % (0.0-0.8); Eosinophils # 0.1 10*3/uL (0.0-0.87); Eosinophils % 0.9 % (0.00-10.9); Hematocrit 24.1 VOL% (42.0-52.0); Hemoglobin 7.5 GM/DL (14.0-18.0); Lymphocytes # 1.1 10*3/uL (1.4-4.0); Lymphocytes % 11.1 % (21.2-54.2); Mean Corpuscular HGB Conc 31.1 GM/DL (32-36); Mean Corpuscular Volume 84.6 FL (87-102); Mean Platelet Volume 11.2 FL (9.6-12.0); Monocytes # 0.6 10*3/uL (0.11-0.8); Monocytes % 6.1 % (1.7-12.7); Neutrophils % 80.3 % (38.7-73.9); Platelet Count 250 T/CUMM (130-400); Red Blood Count 2.85 MC/CUMM (3.8-5.5); Red Cell Distribution Width 17.1 % (9.3-17.3); White Blood Count 10.2 T/CUMM (4-12)
[2022-06-09 05:22] LABS: Calcium 7.9 MG/DL (8.5-10.1); Osmolality,Calculated 283.7 MOS/KG (273-304); Potassium 4.7 MMOL/L (3.5-5.1)
[2022-06-09] MEDS: PIPERACILLIN/TAZOBACTAM 3,375 MG in SODIUM CHLORIDE 0.9% 100 ML IV SCH (05:30)
[2022-06-09] MEDS: LEVOTHYROXINE 25 MCG TABLET PO SCH (05:36)
[2022-06-09] MEDS ORDERED: BUPIVACAINE MPF 0.25% 10 ML VIAL ONE (07:12)
[2022-06-09] MEDS ORDERED: propofoL 200 MG/20 ML VIAL IV ONE (07:21)
[2022-06-09] MEDS ORDERED: DEXMEDETOMIDINE 200 MCG/2 ML VIAL ONE (07:21)
[2022-06-09] MEDS ORDERED: ETOMIDATE 40 MG/20 ML VIAL IV ONE (07:21)
[2022-06-09] MEDS ORDERED: MIDAZOLAM 2 MG/2 ML VIAL ONE (07:22)
[2022-06-09] MEDS ORDERED: KETAMINE 500 MG/10 ML VIAL ONE (07:33)
[2022-06-09] MEDS: ASPIRIN EC 81 MG TABLET PO SCH (08:48)
[2022-06-09] MEDS: HEPARIN 5,000 UNIT/1 ML VIAL SUBCUT SCH (08:48)
[2022-06-09] MEDS: INSULIN REGULAR 100 UNIT/ML SUBCUT SCH ×3 (08:53→16:47)
[2022-06-09] MEDS ORDERED: amLODIPine 10 MG TABLET PO SCH (09:00)
[2022-06-09] MEDS ORDERED: calcitrioL 0.25 MCG CAPSULE PO SCH (09:00)
[2022-06-09] MEDS ORDERED: lisinopriL 2.5 MG TABLET PO SCH (09:00)
[2022-06-09] MEDS ORDERED: METOPROLOL TARTRATE 50 MG TABLET PO SCH (09:00)
[2022-06-09] MEDS: SODIUM HYPOCHLORITE 0.25% IRRIG 473 ML BOTTLE TOP SCH (10:08)
[2022-06-09 12:03] VITALS: BP 115/62
== END 2022-06-09 16:47 | disposition home health service (06) | DRG 622 ==
LOC: SUATTDRO 17:13 → N.3E 17:13
PROVIDERS: ADMIT Student in an Organized Health Care Education/Training Program; ATTEND Internal Medicine Geriatric Medicine

== ENCOUNTER 2022-06-18 18:00 | Inpatient (IN) ==
[2022-06-18 22:41] LABS: Basophils % 0.4 % (0.0-0.8); Eosinophils % 0.1 % (0.00-10.9); Hematocrit 24.2 VOL% (42.0-52.0); Hemoglobin 7.5 GM/DL (14.0-18.0); Immature Granulocytes % 1.3 %; Immature Granulocytes Absolute 0.12 #; Lymphocytes # 0.6 10*3/uL (1.4-4.0); Lymphocytes % 6.8 % (21.2-54.2); Mean Corpuscular Volume 85.2 FL (87-102); Mean Platelet Volume 12.1 FL (9.6-12.0); Monocytes # 0.5 10*3/uL (0.11-0.8); Monocytes % 5.3 % (1.7-12.7); Neutrophils % 86.1 % (38.7-73.9); Platelet Count 248 T/CUMM (130-400); Red Blood Count 2.84 MC/CUMM (3.8-5.5); Red Cell Distribution Width 17.8 % (9.3-17.3); White Blood Count 9.5 T/CUMM (4-12)
[2022-06-18 22:46] LABS: Arterial Base Excess iSTAT -7 MMOL/L (-2.5-2.5); Arterial Bicarbonate iSTAT 17.1 MMOL/L (20-26); Arterial O2 Saturation iSTAT 81 % (95-100); Arterial PCO2 iSTAT 28 MM HG (35-48); Arterial PO2 iSTAT 44 MM HG (80-95); Arterial Total CO2 iSTAT 18 MMO/L (23-27)
[2022-06-18 22:53] LABS: Arterial Base Excess iSTAT -7 MMOL/L (-2.5-2.5); Arterial Bicarbonate iSTAT 16.9 MMOL/L (20-26); Arterial O2 Saturation iSTAT 87 % (95-100); Arterial PCO2 iSTAT 28 MM HG (35-48); Arterial PO2 iSTAT 52 MM HG (80-95); Arterial Total CO2 iSTAT 18 MMO/L (23-27)
[2022-06-18] MEDS ORDERED: GLUCAGON 1 MG VIAL IM PRN ×2 (22:53)
[2022-06-18] MEDS ORDERED: DEXTROSE 10% 250 ML BAG IV PRN (22:53)
[2022-06-18] MEDS ORDERED: ONDANSETRON 4 MG/2 ML VIAL IV PRN (22:53)
[2022-06-18] MEDS ORDERED: hydrALAZINE 20 MG/1 ML VIAL IV PRN (22:53)
[2022-06-18] MEDS ORDERED: diphenhydrAMINE CAP 25 MG CAPSULE PO PRN (22:53)
[2022-06-18] MEDS ORDERED: ACETAMINOPHEN 325 MG TABLET PO PRN (22:53)
[2022-06-18] MEDS ORDERED: guaiFENesin/DM ER 600-30 MG TABLET PO PRN (22:53)
[2022-06-18] MEDS ORDERED: ZALEPLON 5 MG CAPSULE PO PRN (22:53)
[2022-06-18] MEDS ORDERED: DEXTROSE 50% 25 GM/50 ML VIAL IV PRN (22:53)
[2022-06-18] MEDS ORDERED: NICOTINE 21 MG/24 HR PATCH TRANSDERM PRN (22:53)
[2022-06-18] MEDS ORDERED: VANCOMYCIN INJ 1,250 MG in SODIUM CHLORIDE 0.9% 250 ML IV SCH (23:00)
[2022-06-18 23:13] LABS: Albumin 1.9 G/DL (3.4-5.0); Bilirubin,Total 0.4 MG/DL (0.20-1.00); Calcium 8.2 MG/DL (8.5-10.1); Osmolality,Calculated 294.7 MOS/KG (273-304); Potassium 4.9 MMOL/L (3.5-5.1)
[2022-06-18] MEDS ORDERED: VANCOMYCIN INJ 500 MG in SODIUM CHLORIDE 0.9% 100 ML IV PRN (23:35)
[2022-06-18] MEDS ORDERED: ALBUTEROL/IPRATROPIUM 3 ML NEB RESP TX ONE (23:45)
[2022-06-19] MEDS ORDERED: VANCOMYCIN INJ 1,750 MG in SODIUM CHLORIDE 0.9% 500 ML IV ONE
[2022-06-19] MEDS ORDERED: PIPERACILLIN/TAZOBACTAM 2,250 MG in SODIUM CHLORIDE 0.9% 100 ML IV SCH
[2022-06-19] MEDS ORDERED: FUROSEMIDE 40 MG/4 ML VIAL IV ONE (00:15)
[2022-06-19] MEDS: ALBUTEROL/IPRATROPIUM 3 ML NEB RESP TX SCH ×4 (00:19→19:18)
[2022-06-19] MEDS: PIPERACILLIN/TAZOBACTAM 3,375 MG in SODIUM CHLORIDE 0.9% 100 ML IV SCH ×2 (03:58→15:47)
[2022-06-19 05:23] LABS: Basophils # 0.1 10*3/uL (0.0-0.2); Basophils % 0.6 % (0.0-0.8); Eosinophils % 0.3 % (0.00-10.9); Hematocrit 24.6 VOL% (42.0-52.0); Hemoglobin 7.4 GM/DL (14.0-18.0); Immature Granulocytes % 1.5 %; Immature Granulocytes Absolute 0.14 #; Lymphocytes # 0.8 10*3/uL (1.4-4.0); Mean Corpuscular HGB Conc 30.1 GM/DL (32-36); Mean Platelet Volume 12.6 FL (9.6-12.0); Monocytes # 0.6 10*3/uL (0.11-0.8); Monocytes % 6.1 % (1.7-12.7); Neutrophils % 82.5 % (38.7-73.9); Platelet Count 271 T/CUMM (130-400); Red Blood Count 2.86 MC/CUMM (3.8-5.5); Red Cell Distribution Width 17.8 % (9.3-17.3); White Blood Count 9.3 T/CUMM (4-12)
[2022-06-19 05:34] LABS: Calcium 8.3 MG/DL (8.5-10.1); Osmolality,Calculated 294.7 MOS/KG (273-304); Potassium 4.7 MMOL/L (3.5-5.1)
[2022-06-19] MEDS ORDERED: FUROSEMIDE 40 MG/4 ML VIAL IV SCH (09:00)
[2022-06-19] MEDS: INSULIN LISPRO 100 UNIT/ML SUBCUT SCH ×4 (09:27→21:07)
[2022-06-19] MEDS: METOPROLOL TARTRATE 50 MG TABLET PO SCH (09:27)
[2022-06-19] MEDS: PANTOPRAZOLE 40 MG TABLET PO SCH (09:27)
[2022-06-19] MEDS: ASPIRIN EC 81 MG TABLET PO SCH (09:27)
[2022-06-19] MEDS: SODIUM BICARBONATE 650 MG TABLET PO SCH ×3 (09:28→21:08)
[2022-06-19] MEDS: LEVOTHYROXINE 25 MCG TABLET PO SCH (09:28)
[2022-06-19 09:35] LABS: Arterial Base Excess iSTAT -8 MMOL/L (-2.5-2.5); Arterial Bicarbonate iSTAT 15.6 MMOL/L (20-26); Arterial O2 Saturation iSTAT 91 % (95-100); Arterial PCO2 iSTAT 23 MM HG (35-48); Arterial PO2 iSTAT 58 MM HG (80-95); Arterial Total CO2 iSTAT 16 MMO/L (23-27); Arterial pH iSTAT 7.437 (7.35-7.45)
[2022-06-19] MEDS: HEPARIN 5,000 UNIT/1 ML VIAL SUBCUT SCH ×2 (09:39→21:07)
[2022-06-19] MEDS: SIMVASTATIN 40 MG TABLET PO SCH (21:07)
[2022-06-19] MEDS: FERROUS SULFATE 325 MG TABLET PO SCH (21:08)
[2022-06-20] MEDS: ALBUTEROL/IPRATROPIUM 3 ML NEB RESP TX SCH ×4 (01:59→19:47)
[2022-06-20 02:25] LABS: Arterial Base Excess iSTAT -7 MMOL/L (-2.5-2.5); Arterial O2 Saturation iSTAT 73 % (95-100); Arterial PCO2 iSTAT 33 MM HG (35-48); Arterial PO2 iSTAT 40 MM HG (80-95); Arterial Total CO2 iSTAT 19 MMO/L (23-27)
[2022-06-20] MEDS: ALBUTEROL 2.5 MG/3 ML NEB RESP TX SCH ×2 (02:42→08:52)
[2022-06-20] MEDS: PIPERACILLIN/TAZOBACTAM 3,375 MG in SODIUM CHLORIDE 0.9% 100 ML IV SCH ×2 (03:26→16:50)
[2022-06-20 05:05] LABS: Basophils % 0.3 % (0.0-0.8); Hematocrit 24.5 VOL% (42.0-52.0); Hemoglobin 7.5 GM/DL (14.0-18.0); Immature Granulocytes % 1.7 %; Lymphocytes # 0.6 10*3/uL (1.4-4.0); Lymphocytes % 5.1 % (21.2-54.2); Mean Corpuscular HGB Conc 30.6 GM/DL (32-36); Mean Corpuscular Volume 85.4 FL (87-102); Mean Platelet Volume 12.4 FL (9.6-12.0); Monocytes # 0.6 10*3/uL (0.11-0.8); NRBC # 0.02 10*3/uL; Neutrophils % 87.9 % (38.7-73.9); Platelet Count 327 T/CUMM (130-400); Red Blood Count 2.87 MC/CUMM (3.8-5.5); Red Cell Distribution Width 18.2 % (9.3-17.3); White Blood Count 11.9 T/CUMM (4-12)
[2022-06-20 05:20] LABS: Calcium 8.5 MG/DL (8.5-10.1); Osmolality,Calculated 299.4 MOS/KG (273-304); Potassium 4.9 MMOL/L (3.5-5.1)
[2022-06-20 07:38] LABS: Arterial Base Excess iSTAT -7 MMOL/L (-2.5-2.5); Arterial O2 Saturation iSTAT 97 % (95-100); Arterial PCO2 iSTAT 35 MM HG (35-48); Arterial PO2 iSTAT 101 MM HG (80-95); Arterial Total CO2 iSTAT 19 MMO/L (23-27); Arterial pH iSTAT 7.315 (7.35-7.45)
[2022-06-20] MEDS ORDERED: FUROSEMIDE 40 MG/4 ML VIAL IV ONE (08:28)
[2022-06-20] MEDS: INSULIN LISPRO 100 UNIT/ML SUBCUT SCH ×4 (09:32→20:31)
[2022-06-20] MEDS: HEPARIN 5,000 UNIT/1 ML VIAL SUBCUT SCH ×2 (09:32→20:39)
[2022-06-20] MEDS: PANTOPRAZOLE 40 MG TABLET PO SCH (09:33)
[2022-06-20] MEDS: LEVOTHYROXINE 25 MCG TABLET PO SCH (09:33)
[2022-06-20] MEDS: methylPREDNISolone SOD SUC 40 MG/1 ML VIAL IV SCH ×2 (09:33→16:50)
[2022-06-20] MEDS: METOPROLOL TARTRATE 50 MG TABLET PO SCH (09:33)
[2022-06-20] MEDS: FERROUS SULFATE 325 MG TABLET PO SCH ×2 (09:33→20:29)
[2022-06-20] MEDS: SODIUM BICARBONATE 650 MG TABLET PO SCH ×3 (09:33→20:29)
[2022-06-20] MEDS: ASPIRIN EC 81 MG TABLET PO SCH (09:34)
[2022-06-20] MEDS ORDERED: ZINC OXIDE PASTE 113 GM TUBE TOP PRN (15:15)
[2022-06-20 17:31] LABS: Arterial Base Excess iSTAT -8 MMOL/L (-2.5-2.5); Arterial Bicarbonate iSTAT 17.5 MMOL/L (20-26); Arterial O2 Saturation iSTAT 64 % (95-100); Arterial PCO2 iSTAT 33 MM HG (35-48); Arterial PO2 iSTAT 35 MM HG (80-95); Arterial Total CO2 iSTAT 18 MMO/L (23-27); Arterial pH iSTAT 7.329 (7.35-7.45)
[2022-06-20 17:58] LABS: Arterial Base Excess iSTAT -8 MMOL/L (-2.5-2.5); Arterial Bicarbonate iSTAT 16.8 MMOL/L (20-26); Arterial O2 Saturation iSTAT 94 % (95-100); Arterial PCO2 iSTAT 29 MM HG (35-48); Arterial PO2 iSTAT 73 MM HG (80-95); Arterial Total CO2 iSTAT 18 MMO/L (23-27); Arterial pH iSTAT 7.372 (7.35-7.45)
[2022-06-20] MEDS: SIMVASTATIN 40 MG TABLET PO SCH (20:30)
[2022-06-20] MEDS: INSULIN GLARGINE 100 UNIT/ML SUBCUT SCH (20:31)
[2022-06-21] MEDS: ALBUTEROL/IPRATROPIUM 3 ML NEB RESP TX SCH ×4 (00:10→19:20)
[2022-06-21] MEDS: methylPREDNISolone SOD SUC 40 MG/1 ML VIAL IV SCH ×3 (01:29→17:27)
[2022-06-21 04:02] LABS: Arterial Base Excess iSTAT -8 MMOL/L (-2.5-2.5); Arterial Bicarbonate iSTAT 16.7 MMOL/L (20-26); Arterial O2 Saturation iSTAT 97 % (95-100); Arterial PCO2 iSTAT 29 MM HG (35-48); Arterial PO2 iSTAT 87 MM HG (80-95); Arterial Total CO2 iSTAT 18 MMO/L (23-27); Arterial pH iSTAT 7.362 (7.35-7.45)
[2022-06-21 05:04] LABS: Basophils % 0.1 % (0.0-0.8); Hematocrit 26.3 VOL% (42.0-52.0); Hemoglobin 7.8 GM/DL (14.0-18.0); Immature Granulocytes % 1.3 %; Immature Granulocytes Absolute 0.24 #; Lymphocytes # 0.6 10*3/uL (1.4-4.0); Lymphocytes % 3.3 % (21.2-54.2); Mean Corpuscular HGB Conc 29.7 GM/DL (32-36); Mean Corpuscular Volume 87.1 FL (87-102); Mean Platelet Volume 12.3 FL (9.6-12.0); Monocytes # 0.5 10*3/uL (0.11-0.8); Monocytes % 2.6 % (1.7-12.7); NRBC # 0.03 10*3/uL; Neutrophils % 92.7 % (38.7-73.9); Platelet Count 352 T/CUMM (130-400); Red Blood Count 3.02 MC/CUMM (3.8-5.5); Red Cell Distribution Width 18.7 % (9.3-17.3); White Blood Count 18.6 T/CUMM (4-12)
[2022-06-21] MEDS: PIPERACILLIN/TAZOBACTAM 3,375 MG in SODIUM CHLORIDE 0.9% 100 ML IV SCH ×2 (05:20→17:26)
[2022-06-21 05:24] LABS: Calcium 8.9 MG/DL (8.5-10.1); Osmolality,Calculated 305.3 MOS/KG (273-304); Potassium 5.2 MMOL/L (3.5-5.1)
[2022-06-21 05:27] LABS: Band Neutrophils 4 % (0-10); Hypochromia 1+; Lymphocytes 1 % (20-55); Total Cells Counted 100
[2022-06-21 05:28] LABS: Microcytosis 1+; Ovalocytes Slight; Platelet Estimate Normal
[2022-06-21] MEDS ORDERED: SODIUM ZIRCONIUM CYCLOSILICATE 10 GM PACK PO SCH (09:00)
[2022-06-21] MEDS: HEPARIN 5,000 UNIT/1 ML VIAL SUBCUT SCH ×2 (09:40→22:32)
[2022-06-21] MEDS: SODIUM BICARBONATE 650 MG TABLET PO SCH ×3 (09:41→22:32)
[2022-06-21] MEDS: FERROUS SULFATE 325 MG TABLET PO SCH ×2 (09:41→22:32)
[2022-06-21] MEDS: LEVOTHYROXINE 25 MCG TABLET PO SCH (09:41)
[2022-06-21] MEDS: PANTOPRAZOLE 40 MG TABLET PO SCH (09:41)
[2022-06-21] MEDS: INSULIN LISPRO 100 UNIT/ML SUBCUT SCH ×4 (09:41→22:32)
[2022-06-21] MEDS: ASPIRIN EC 81 MG TABLET PO SCH (09:41)
[2022-06-21] MEDS: METOPROLOL TARTRATE 50 MG TABLET PO SCH (09:41)
[2022-06-21] MEDS: FUROSEMIDE 40 MG/4 ML VIAL IV SCH (17:27)
[2022-06-21] MEDS: metOLazone 5 MG TABLET PO SCH (22:32)
[2022-06-21] MEDS: SIMVASTATIN 40 MG TABLET PO SCH (22:32)
[2022-06-21] MEDS: INSULIN GLARGINE 100 UNIT/ML SUBCUT SCH (22:33)
[2022-06-22] MEDS: FUROSEMIDE 40 MG/4 ML VIAL IV SCH ×4 (00:16→23:17)
[2022-06-22] MEDS: methylPREDNISolone SOD SUC 40 MG/1 ML VIAL IV SCH ×3 (00:16→17:56)
[2022-06-22] MEDS: ALBUTEROL/IPRATROPIUM 3 ML NEB RESP TX SCH ×4 (00:46→18:56)
[2022-06-22 04:51] LABS: Basophils % 0.1 % (0.0-0.8); Hematocrit 28.9 VOL% (42.0-52.0); Hemoglobin 8.4 GM/DL (14.0-18.0); Immature Granulocytes % 1.7 %; Immature Granulocytes Absolute 0.38 #; Lymphocytes # 0.5 10*3/uL (1.4-4.0); Lymphocytes % 2.2 % (21.2-54.2); Mean Corpuscular HGB Conc 29.1 GM/DL (32-36); Mean Corpuscular Volume 89.2 FL (87-102); Mean Platelet Volume 12.6 FL (9.6-12.0); Monocytes # 0.7 10*3/uL (0.11-0.8); Monocytes % 3.1 % (1.7-12.7); NRBC # 0.06 10*3/uL; Neutrophils % 92.9 % (38.7-73.9); Platelet Count 393 T/CUMM (130-400); Red Blood Count 3.24 MC/CUMM (3.8-5.5); Red Cell Distribution Width 19.4 % (9.3-17.3)
[2022-06-22] MEDS: PIPERACILLIN/TAZOBACTAM 3,375 MG in SODIUM CHLORIDE 0.9% 100 ML IV SCH ×2 (04:59→17:56)
[2022-06-22 05:07] LABS: Calcium 8.5 MG/DL (8.5-10.1); Osmolality,Calculated 325.8 MOS/KG (273-304); Potassium 5.5 MMOL/L (3.5-5.1)
[2022-06-22 05:08] LABS: Calcium 8.4 MG/DL (8.5-10.1); Potassium 5.4 MMOL/L (3.5-5.1)
[2022-06-22 05:31] LABS: Hypochromia Slight; Lymphocytes 2 % (20-55); Microcytosis Slight; Platelet Estimate Adequate; Total Cells Counted 100
[2022-06-22 06:03] LABS: Hepatitis B Core IgM Quant 0.18 Index; Hepatitis B Surface Ag Quant < 0.10 Index; Hepatitis B Surface Ag Result Non-Reactive (NonReactive); Hepatitis C Virus Ab Quant 0.05 Index; Hepatitis C Virus Ab Result Non-Reactive (NonReactive)
[2022-06-22] MEDS: INSULIN LISPRO 100 UNIT/ML SUBCUT SCH ×3 (07:30→16:51)
[2022-06-22] MEDS ORDERED: INSULIN REGULAR 100 UNIT/ML IV ONE (07:31)
[2022-06-22] MEDS ORDERED: SODIUM BICARBONATE 50 MEQ/50 ML SYRINGE IV ONE (07:31)
[2022-06-22] MEDS ORDERED: CALCIUM GLUCONATE RIDER 1,000 MG/50 ML PREMIX IV ONE (07:31)
[2022-06-22] MEDS ORDERED: EPINEPHrine 1 MG/10 ML SYRINGE IV ONE (08:10)
[2022-06-22] MEDS ORDERED: CALCIUM CHLORIDE 1,000 MG/10 ML SYRINGE IV ONE (08:13)
[2022-06-22] MEDS ORDERED: MIDAZOLAM 2 MG/2 ML VIAL ONE (08:41)
[2022-06-22] MEDS ORDERED: MIDAZOLAM 100 MG in DEXTROSE 5% 80 ML IV PRN (08:43)
[2022-06-22] MEDS ORDERED: MIDAZOLAM 2 MG/2 ML VIAL IV ONE ×2 (08:43→09:00)
[2022-06-22] MEDS ORDERED: SODIUM ZIRCONIUM CYCLOSILICATE 10 GM PACK PO SCH (09:00)
[2022-06-22] MEDS: LEVOTHYROXINE 25 MCG TABLET PO SCH (09:00)
[2022-06-22] MEDS: HEPARIN 5,000 UNIT/1 ML VIAL SUBCUT SCH ×2 (09:00→20:13)
[2022-06-22] MEDS: metOLazone 5 MG TABLET PO SCH ×2 (09:00→20:13)
[2022-06-22] MEDS: ASPIRIN EC 81 MG TABLET PO SCH (09:00)
[2022-06-22] MEDS: FERROUS SULFATE 325 MG TABLET PO SCH ×2 (09:00→20:13)
[2022-06-22] MEDS: SODIUM BICARBONATE 650 MG TABLET PO SCH ×3 (09:00→20:13)
[2022-06-22] MEDS ORDERED: SODIUM BICARBONATE 50 MEQ/50 ML VIAL IV ONE ×2 (09:21)
[2022-06-22 09:23] LABS: Arterial Base Excess iSTAT -15 MMOL/L (-2.5-2.5); Arterial Bicarbonate iSTAT 13.8 MMOL/L (20-26); Arterial O2 Saturation iSTAT 99 % (95-100); Arterial PCO2 iSTAT 45 MM HG (35-48); Arterial PO2 iSTAT 165 MM HG (80-95); Arterial Total CO2 iSTAT 15 MMO/L (23-27); Arterial pH iSTAT 7.099 (7.35-7.45)
[2022-06-22 09:30] LABS: Basophils % 0.1 % (0.0-0.8); Hematocrit 26.4 VOL% (42.0-52.0); Hemoglobin 7.6 GM/DL (14.0-18.0); Immature Granulocytes % 1.3 %; Immature Granulocytes Absolute 0.25 #; Lymphocytes # 1.2 10*3/uL (1.4-4.0); Mean Corpuscular HGB Conc 28.8 GM/DL (32-36); Mean Corpuscular Volume 91.7 FL (87-102); Mean Platelet Volume 12.5 FL (9.6-12.0); Monocytes # 0.1 10*3/uL (0.11-0.8); Monocytes % 0.3 % (1.7-12.7); NRBC # 0.08 10*3/uL; Neutrophils % 92.3 % (38.7-73.9); Platelet Count 437 T/CUMM (130-400); Red Blood Count 2.88 MC/CUMM (3.8-5.5); Red Cell Distribution Width 19.4 % (9.3-17.3); White Blood Count 19.8 T/CUMM (4-12)
[2022-06-22] MEDS: METOPROLOL TARTRATE 50 MG TABLET PO SCH (09:39)
[2022-06-22] MEDS: NOREPINEPHRINE 8 MG in SODIUM CHLORIDE 0.9% 242 ML IV PRN ×3 (09:40→17:30)
[2022-06-22 09:43] LABS: INR 1.3; PT Patient Result 14.5 SECS (10.1-12.1); Partial Thromboplastin Time 38.7 SECS (23.7-32.9)
[2022-06-22 09:50] LABS: Acanthocytes Few; Burr Cells Slight; Hypochromia Slight; Lymphocytes 5 % (20-55); Microcytosis Slight; Nucleated Red Blood Cells 1 /100 WBC (0-5); Ovalocytes Slight; Platelet Estimate Adequate; Total Cells Counted 100
[2022-06-22 10:00] LABS: Alanine Aminotransferase 22 U/L (16-61); Albumin 1.7 G/DL (3.4-5.0); Alkaline Phosphatase 145 U/L (45-117); Aspartate Amino Transferase 51 U/L (0-37); Blood Urea Nitrogen 98 MG/DL (7-18); Calcium 9.4 MG/DL (8.5-10.1); Carbon Dioxide 17 MMOL/L (21-32); Chloride 114 MMOL/L (98-107); Glucose 371 MG/DL (74-106); Osmolality,Calculated 337.4 MOS/KG (273-304); Potassium 4.7 MMOL/L (3.5-5.1); Sodium 147 MMOL/L (136-145); Total Protein 6.4 G/DL (6.4-8.2)
[2022-06-22] MEDS: SODIUM BICARB INJ 150 MEQ in STERILE WATER INJ 1,000 ML IV SCH (10:38)
[2022-06-22] MEDS ORDERED: NOREPINEPHRINE 4 MG/4 ML VIAL IV ONE (14:02)
[2022-06-22] MEDS ORDERED: HEPARIN 10,000 UNIT/10 ML VIAL IV PRN (16:02)
[2022-06-22] MEDS: MIDAZOLAM 100 MG in SODIUM CHLORIDE 0.9% 80 ML IV PRN (20:10)
[2022-06-22] MEDS: INSULIN GLARGINE 100 UNIT/ML SUBCUT SCH (20:12)
[2022-06-22] MEDS: SIMVASTATIN 40 MG TABLET PO SCH (20:13)
[2022-06-22 20:57] LABS: ABG Base Excess -4.7 MMOL/L (-2.5-2.5); ABG HCO3 20.5 MMOL/L (20-26); ABG Oxygen Saturation 99.8 % (95-100); ABG PCO2 57.5 MM HG (35-48); ABG PH 7.215 (7.35-7.45); ABG TCO2 22.4 MMOL/L (23-27)
[2022-06-22] MEDS: NOREPINEPHRINE 16 MG in SODIUM CHLORIDE 0.9% 234 ML IV PRN (21:53)
[2022-06-22] MEDS: INSULIN REGULAR 100 UNIT/ML SUBCUT SCH (23:16)
[2022-06-23] MEDS: ALBUTEROL/IPRATROPIUM 3 ML NEB RESP TX SCH ×4 (00:06→19:19)
[2022-06-23] MEDS: methylPREDNISolone SOD SUC 40 MG/1 ML VIAL IV SCH ×4 (00:10→23:30)
[2022-06-23 03:30] LABS: ABG Base Excess -5.3 MMOL/L (-2.5-2.5); ABG Oxygen Saturation 98.9 % (95-100); ABG PH 7.301 (7.35-7.45); ABG TCO2 19.7 MMOL/L (23-27)
[2022-06-23 03:36] LABS: Basophils % 0.1 % (0.0-0.8); Hematocrit 22.9 VOL% (42.0-52.0); Hemoglobin 6.9 GM/DL (14.0-18.0); Immature Granulocytes % 0.7 %; Immature Granulocytes Absolute 0.12 #; Lymphocytes # 0.2 10*3/uL (1.4-4.0); Lymphocytes % 1.5 % (21.2-54.2); Mean Corpuscular HGB Conc 30.1 GM/DL (32-36); Mean Corpuscular Volume 87.1 FL (87-102); Monocytes # 0.6 10*3/uL (0.11-0.8); Monocytes % 3.5 % (1.7-12.7); NRBC # 0.05 10*3/uL; Neutrophils % 94.2 % (38.7-73.9); Platelet Count 284 T/CUMM (130-400); Red Blood Count 2.63 MC/CUMM (3.8-5.5); Red Cell Distribution Width 19.8 % (9.3-17.3); White Blood Count 16.5 T/CUMM (4-12)
[2022-06-23] MEDS: PIPERACILLIN/TAZOBACTAM 3,375 MG in SODIUM CHLORIDE 0.9% 100 ML IV SCH (03:54)
[2022-06-23 03:56] LABS: Alanine Aminotransferase 18 U/L (16-61); Albumin 1.7 G/DL (3.4-5.0); Alkaline Phosphatase 130 U/L (45-117); Aspartate Amino Transferase 17 U/L (0-37); Bilirubin,Total < 0.39 MG/DL (0.20-1.00); Blood Urea Nitrogen 90 MG/DL (7-18); Calcium 7.4 MG/DL (8.5-10.1); Carbon Dioxide 22 MMOL/L (21-32); Chloride 111 MMOL/L (98-107); Glucose 300 MG/DL (74-106); Osmolality,Calculated 328.6 MOS/KG (273-304); Potassium 4.7 MMOL/L (3.5-5.1); Sodium 146 MMOL/L (136-145); Total Protein 6.8 G/DL (6.4-8.2)
[2022-06-23 03:59] LABS: Band Neutrophils 2 % (0-10); Lymphocytes 1 % (20-55); Total Cells Counted 100
[2022-06-23 04:00] LABS: Hypochromia 1+
[2022-06-23] MEDS ORDERED: SODIUM CHLORIDE 0.9% 1,000 ML IV PRN (04:00)
[2022-06-23 04:03] LABS: Anisocytosis 1+; Microcytosis 1+; Ovalocytes Slight
[2022-06-23] MEDS: INSULIN REGULAR 100 UNIT/ML SUBCUT SCH ×4 (05:35→23:28)
[2022-06-23] MEDS: FUROSEMIDE 40 MG/4 ML VIAL IV SCH (08:25)
[2022-06-23] MEDS: PANTOPRAZOLE 40 MG VIAL IV SCH (08:25)
[2022-06-23] MEDS: HEPARIN 5,000 UNIT/1 ML VIAL SUBCUT SCH ×2 (08:25→20:24)
[2022-06-23] MEDS: LEVOTHYROXINE 25 MCG TABLET PO SCH (08:30)
[2022-06-23] MEDS: METOPROLOL TARTRATE 50 MG TABLET PO SCH (08:30)
[2022-06-23] MEDS: SODIUM BICARBONATE 650 MG TABLET PO SCH ×3 (08:30→20:23)
[2022-06-23] MEDS: ASPIRIN EC 81 MG TABLET PO SCH (08:30)
[2022-06-23] MEDS: FERROUS SULFATE 325 MG TABLET PO SCH ×2 (08:30→20:24)
[2022-06-23] MEDS: metOLazone 5 MG TABLET PO SCH ×2 (08:30→20:24)
[2022-06-23] MEDS ORDERED: MEROPENEM 500 MG in SODIUM CHLORIDE 0.9% 100 ML IV SCH (08:30)
[2022-06-23] MEDS: SODIUM BICARB INJ 150 MEQ in STERILE WATER INJ 1,000 ML IV SCH (08:45)
[2022-06-23] MEDS ORDERED: VANCOMYCIN INJ 500 MG in SODIUM CHLORIDE 0.9% 100 ML IV ONE (17:00)
[2022-06-23] MEDS: MEROPENEM 500 MG in SODIUM CHLORIDE 0.9% 100 ML IV SCH (17:30)
[2022-06-23] MEDS ORDERED: INSULIN REGULAR 100 UNIT/ML SUBCUT SCH (19:12)
[2022-06-23] MEDS: MORPHINE 2 MG/1 ML SYRINGE IV PRN (19:21)
[2022-06-23] MEDS: SIMVASTATIN 40 MG TABLET PO SCH (20:23)
[2022-06-23] MEDS: INSULIN GLARGINE 100 UNIT/ML SUBCUT SCH (20:24)
[2022-06-23] MEDS: NOREPINEPHRINE 16 MG in SODIUM CHLORIDE 0.9% 234 ML IV PRN (20:36)
[2022-06-24] MEDS: MIDAZOLAM 100 MG in SODIUM CHLORIDE 0.9% 80 ML IV PRN ×2 (00:06→20:07)
[2022-06-24] MEDS: ALBUTEROL/IPRATROPIUM 3 ML NEB RESP TX SCH ×4 (01:03→19:30)
[2022-06-24 03:53] LABS: ABG Base Excess -2.6 MMOL/L (-2.5-2.5); ABG HCO3 22.2 MMOL/L (20-26); ABG Oxygen Saturation 99.5 % (95-100); ABG PCO2 40.3 MM HG (35-48); ABG PH 7.357 (7.35-7.45); ABG TCO2 21.4 MMOL/L (23-27)
[2022-06-24 03:54] LABS: Hematocrit 21.5 VOL% (42.0-52.0); Hemoglobin 6.7 GM/DL (14.0-18.0); Immature Granulocytes % 0.6 %; Immature Granulocytes Absolute 0.05 #; Lymphocytes # 0.2 10*3/uL (1.4-4.0); Lymphocytes % 2.6 % (21.2-54.2); Mean Corpuscular HGB Conc 31.2 GM/DL (32-36); Mean Platelet Volume 11.8 FL (9.6-12.0); Monocytes # 0.2 10*3/uL (0.11-0.8); Monocytes % 2.3 % (1.7-12.7); NRBC # 0.02 10*3/uL; Neutrophils % 94.5 % (38.7-73.9); Platelet Count 113 T/CUMM (130-400); Red Cell Distribution Width 18.6 % (9.3-17.3); White Blood Count 7.8 T/CUMM (4-12)
[2022-06-24 04:14] LABS: Lymphocytes 2 % (20-55); Total Cells Counted 100
[2022-06-24 04:16] LABS: Hypochromia 1+; Microcytosis 1+
[2022-06-24 04:20] LABS: Alanine Aminotransferase 14 U/L (16-61); Albumin 1.5 G/DL (3.4-5.0); Alkaline Phosphatase 98 U/L (45-117); Aspartate Amino Transferase 11 U/L (0-37); Bilirubin,Total < 0.39 MG/DL (0.20-1.00); Blood Urea Nitrogen 74 MG/DL (7-18); Calcium 7.4 MG/DL (8.5-10.1); Carbon Dioxide 22 MMOL/L (21-32); Chloride 109 MMOL/L (98-107); Glucose 229 MG/DL (74-106); Osmolality,Calculated 316.7 MOS/KG (273-304); Phosphorous 6.8 MG/DL (2.5-4.9); Potassium 3.8 MMOL/L (3.5-5.1); Sodium 145 MMOL/L (136-145); Total Protein 6.1 G/DL (6.4-8.2)
[2022-06-24] MEDS: INSULIN REGULAR 100 UNIT/ML SUBCUT SCH ×4 (05:37→23:32)
[2022-06-24] MEDS ORDERED: SODIUM CHLORIDE 0.9% 1,000 ML IV PRN (08:04)
[2022-06-24] MEDS: methylPREDNISolone SOD SUC 40 MG/1 ML VIAL IV SCH ×3 (08:35→23:32)
[2022-06-24] MEDS: HEPARIN 5,000 UNIT/1 ML VIAL SUBCUT SCH ×2 (08:35→20:06)
[2022-06-24] MEDS: PANTOPRAZOLE 40 MG VIAL IV SCH (08:35)
[2022-06-24] MEDS: LEVOTHYROXINE 25 MCG TABLET PO SCH (08:40)
[2022-06-24] MEDS: metOLazone 5 MG TABLET PO SCH ×2 (08:40→20:06)
[2022-06-24] MEDS: FERROUS SULFATE 325 MG TABLET PO SCH ×2 (08:40→20:06)
[2022-06-24] MEDS: METOPROLOL TARTRATE 50 MG TABLET PO SCH (08:40)
[2022-06-24] MEDS: ASPIRIN EC 81 MG TABLET PO SCH (08:40)
[2022-06-24] MEDS: SODIUM BICARBONATE 650 MG TABLET PO SCH ×3 (08:40→20:06)
[2022-06-24 16:19] LABS: ABG Base Excess -4.5 MMOL/L (-2.5-2.5); ABG HCO3 20.5 MMOL/L (20-26); ABG Oxygen Saturation 89.2 % (95-100); ABG PH 7.316 (7.35-7.45); ABG PO2 62.2 MM HG (80-95); ABG TCO2 19.8 MMOL/L (23-27)
[2022-06-24] MEDS: MEROPENEM 500 MG in SODIUM CHLORIDE 0.9% 100 ML IV SCH (17:30)
[2022-06-24] MEDS: INSULIN GLARGINE 100 UNIT/ML SUBCUT SCH (20:06)
[2022-06-24] MEDS: SIMVASTATIN 40 MG TABLET PO SCH (20:06)
[2022-06-25] MEDS: ALBUTEROL/IPRATROPIUM 3 ML NEB RESP TX SCH ×4 (00:40→19:26)
[2022-06-25 03:29] LABS: ABG Base Excess -1.4 MMOL/L (-2.5-2.5); ABG HCO3 23.2 MMOL/L (20-26); ABG Oxygen Saturation 99.7 % (95-100); ABG PCO2 36.2 MM HG (35-48); ABG PH 7.407 (7.35-7.45); ABG TCO2 20.6 MMOL/L (23-27)
[2022-06-25 03:39] LABS: Hematocrit 28.2 VOL% (42.0-52.0); Immature Granulocytes % 1.1 %; Immature Granulocytes Absolute 0.09 #; Lymphocytes # 0.2 10*3/uL (1.4-4.0); Lymphocytes % 1.8 % (21.2-54.2); Mean Corpuscular HGB Conc 31.9 GM/DL (32-36); Mean Corpuscular Volume 82.7 FL (87-102); Mean Platelet Volume 11.6 FL (9.6-12.0); Monocytes # 0.2 10*3/uL (0.11-0.8); Monocytes % 2.7 % (1.7-12.7); NRBC # 0.03 10*3/uL; Neutrophils % 94.4 % (38.7-73.9); Platelet Count 59 T/CUMM (130-400); Red Blood Count 3.41 MC/CUMM (3.8-5.5); Red Cell Distribution Width 19.6 % (9.3-17.3); White Blood Count 8.5 T/CUMM (4-12)
[2022-06-25 04:00] LABS: Alanine Aminotransferase 17 U/L (16-61); Albumin 1.7 G/DL (3.4-5.0); Alkaline Phosphatase 114 U/L (45-117); Aspartate Amino Transferase 16 U/L (0-37); Bilirubin,Total < 0.39 MG/DL (0.20-1.00); Blood Urea Nitrogen 69 MG/DL (7-18); Calcium 7.5 MG/DL (8.5-10.1); Carbon Dioxide 23 MMOL/L (21-32); Chloride 107 MMOL/L (98-107); Glucose 305 MG/DL (74-106); Osmolality,Calculated 313.1 MOS/KG (273-304); Potassium 3.8 MMOL/L (3.5-5.1); Sodium 142 MMOL/L (136-145); Total Protein 6.3 G/DL (6.4-8.2)
[2022-06-25 04:01] LABS: Lymphocytes 1 % (20-55); Nucleated Red Blood Cells 1 /100 WBC (0-5); Total Cells Counted 100
[2022-06-25 04:02] LABS: Platelet Estimate Decreased
[2022-06-25 04:03] LABS: Microcytosis Slight
[2022-06-25] MEDS: INSULIN REGULAR 100 UNIT/ML SUBCUT SCH ×4 (05:34→23:58)
[2022-06-25] MEDS ORDERED: INSULIN GLARGINE 100 UNIT/ML SUBCUT ONE (09:29)
[2022-06-25] MEDS: LEVOTHYROXINE 25 MCG TABLET PO SCH (09:43)
[2022-06-25] MEDS: ASPIRIN EC 81 MG TABLET PO SCH (09:44)
[2022-06-25] MEDS: SODIUM BICARBONATE 650 MG TABLET PO SCH ×3 (09:44→20:25)
[2022-06-25] MEDS: metOLazone 5 MG TABLET PO SCH ×2 (09:44→20:26)
[2022-06-25] MEDS: FERROUS SULFATE 325 MG TABLET PO SCH ×2 (09:44→20:25)
[2022-06-25] MEDS: METOPROLOL TARTRATE 50 MG TABLET PO SCH (09:45)
[2022-06-25] MEDS: methylPREDNISolone SOD SUC 40 MG/1 ML VIAL IV SCH ×3 (09:46→23:57)
[2022-06-25] MEDS: PANTOPRAZOLE 40 MG VIAL IV SCH (09:48)
[2022-06-25] MEDS: MIDAZOLAM 100 MG in SODIUM CHLORIDE 0.9% 80 ML IV PRN (11:05)
[2022-06-25] MEDS: MORPHINE 2 MG/1 ML SYRINGE IV PRN ×2 (13:12→20:28)
[2022-06-25] MEDS ORDERED: METOPROLOL TARTRATE 5 MG/5 ML VIAL IV ONE (14:35)
[2022-06-25] MEDS: MEROPENEM 500 MG in SODIUM CHLORIDE 0.9% 100 ML IV SCH (18:05)
[2022-06-25] MEDS ORDERED: INSULIN REGULAR 100 UNIT/ML IV ONE (19:57)
[2022-06-25] MEDS: SIMVASTATIN 40 MG TABLET PO SCH (20:25)
[2022-06-25] MEDS: INSULIN GLARGINE 100 UNIT/ML SUBCUT SCH (20:26)
[2022-06-26] MEDS: ALBUTEROL/IPRATROPIUM 3 ML NEB RESP TX SCH ×5 (00:01→23:50)
[2022-06-26] MEDS: MIDAZOLAM 100 MG in SODIUM CHLORIDE 0.9% 80 ML IV PRN ×2 (02:15→16:57)
[2022-06-26 03:48] LABS: ABG HCO3 24.5 MMOL/L (20-26); ABG Oxygen Saturation 99.7 % (95-100); ABG PCO2 41.8 MM HG (35-48); ABG PH 7.385 (7.35-7.45); ABG TCO2 23.2 MMOL/L (23-27)
[2022-06-26] MEDS: INSULIN REGULAR 100 UNIT/ML SUBCUT SCH ×5 (03:54→20:49)
[2022-06-26 03:55] LABS: Basophils % 0.1 % (0.0-0.8); Hematocrit 28.3 VOL% (42.0-52.0); Immature Granulocytes % 1.9 %; Immature Granulocytes Absolute 0.16 #; Lymphocytes # 0.2 10*3/uL (1.4-4.0); Mean Corpuscular HGB Conc 31.8 GM/DL (32-36); Monocytes # 0.3 10*3/uL (0.11-0.8); Platelet Count 57 T/CUMM (130-400); Red Blood Count 3.37 MC/CUMM (3.8-5.5); Red Cell Distribution Width 19.8 % (9.3-17.3); White Blood Count 8.4 T/CUMM (4-12)
[2022-06-26 04:11] LABS: Alanine Aminotransferase 17 U/L (16-61); Albumin 1.9 G/DL (3.4-5.0); Alkaline Phosphatase 113 U/L (45-117); Aspartate Amino Transferase 9 U/L (0-37); Bilirubin,Total < 0.39 MG/DL (0.20-1.00); Blood Urea Nitrogen 88 MG/DL (7-18); Calcium 7.4 MG/DL (8.5-10.1); Carbon Dioxide 28 MMOL/L (21-32); Chloride 108 MMOL/L (98-107); Glucose 385 MG/DL (74-106); Osmolality,Calculated 332.6 MOS/KG (273-304); Potassium 3.6 MMOL/L (3.5-5.1); Sodium 146 MMOL/L (136-145); Total Protein 6.3 G/DL (6.4-8.2)
[2022-06-26 04:13] LABS: Lymphocytes 1 % (20-55); Platelet Estimate Decreased; Total Cells Counted 100
[2022-06-26 04:14] LABS: Hypochromia Slight; Microcytosis Slight
[2022-06-26 04:32] LABS: Phosphorous 5.2 MG/DL (2.5-4.9)
[2022-06-26] MEDS ORDERED: INSULIN GLARGINE 100 UNIT/ML SUBCUT ONE (07:37)
[2022-06-26] MEDS: metOLazone 5 MG TABLET PO SCH (09:37)
[2022-06-26] MEDS: PANTOPRAZOLE 40 MG VIAL IV SCH (09:37)
[2022-06-26] MEDS: FERROUS SULFATE 325 MG TABLET PO SCH ×2 (09:37→20:48)
[2022-06-26] MEDS: methylPREDNISolone SOD SUC 40 MG/1 ML VIAL IV SCH ×2 (09:37→20:49)
[2022-06-26] MEDS: METOPROLOL TARTRATE 50 MG TABLET PO SCH (09:37)
[2022-06-26] MEDS: SODIUM BICARBONATE 650 MG TABLET PO SCH ×3 (09:37→20:48)
[2022-06-26] MEDS: ASPIRIN EC 81 MG TABLET PO SCH (09:38)
[2022-06-26] MEDS: LEVOTHYROXINE 25 MCG TABLET PO SCH (09:38)
[2022-06-26] MEDS ORDERED: NOREPINEPHRINE 4 MG/4 ML VIAL IV ONE (10:22)
[2022-06-26] MEDS ORDERED: NOREPINEPHRINE 8 MG in SODIUM CHLORIDE 0.9% 242 ML IV PRN (10:27)
[2022-06-26] MEDS ORDERED: MORPHINE 2 MG/1 ML SYRINGE ONE (11:57)
[2022-06-26] MEDS ORDERED: MORPHINE 2 MG/1 ML SYRINGE IV PRN (12:00)
[2022-06-26] MEDS: cefTRIAXone 1,000 MG in SODIUM CHLORIDE 0.9% 100 ML IV SCH (12:59)
[2022-06-26] MEDS: AZITHROMYCIN INJ 500 MG in SODIUM CHLORIDE 0.9% 250 ML IV SCH (13:05)
[2022-06-26] MEDS: SIMVASTATIN 40 MG TABLET PO SCH (20:48)
[2022-06-26] MEDS: INSULIN GLARGINE 100 UNIT/ML SUBCUT SCH (20:50)
[2022-06-26] MEDS ORDERED: INSULIN GLARGINE 100 UNIT/ML SUBCUT SCH (21:00)
[2022-06-27] MEDS: INSULIN REGULAR 100 UNIT/ML SUBCUT SCH ×6 (00:55→20:42)
[2022-06-27 03:55] LABS: ABG Base Excess 0.5 MMOL/L (-2.5-2.5); ABG HCO3 24.9 MMOL/L (20-26); ABG Oxygen Saturation 99.7 % (95-100); ABG PCO2 33.8 MM HG (35-48); ABG PH 7.458 (7.35-7.45); ABG TCO2 21.8 MMOL/L (23-27)
[2022-06-27 03:56] LABS: Basophils % 0.1 % (0.0-0.8); Hematocrit 29.1 VOL% (42.0-52.0); Hemoglobin 9.4 GM/DL (14.0-18.0); Immature Granulocytes % 2.4 %; Immature Granulocytes Absolute 0.33 #; Lymphocytes # 0.3 10*3/uL (1.4-4.0); Lymphocytes % 2.5 % (21.2-54.2); Mean Corpuscular HGB Conc 32.3 GM/DL (32-36); Mean Corpuscular Volume 82.4 FL (87-102); Monocytes # 0.3 10*3/uL (0.11-0.8); Monocytes % 2.2 % (1.7-12.7); Neutrophils % 92.8 % (38.7-73.9); Platelet Count 48 T/CUMM (130-400); Red Blood Count 3.53 MC/CUMM (3.8-5.5); Red Cell Distribution Width 19.6 % (9.3-17.3); White Blood Count 13.5 T/CUMM (4-12)
[2022-06-27 04:14] LABS: Hypochromia Slight; Lymphocytes 2 % (20-55); Microcytosis Slight; Platelet Estimate Decreased; Total Cells Counted 100
[2022-06-27 04:15] LABS: % Iron Saturation 29.3 % (18-50); Alanine Aminotransferase 21 U/L (16-61); Albumin 1.6 G/DL (3.4-5.0); Alkaline Phosphatase 106 U/L (45-117); Aspartate Amino Transferase 15 U/L (0-37); Bilirubin,Total < 0.39 MG/DL (0.20-1.00); Blood Urea Nitrogen 90 MG/DL (7-18); Calcium 7.6 MG/DL (8.5-10.1); Carbon Dioxide 23 MMOL/L (21-32); Chloride 110 MMOL/L (98-107); Ferritin 397.1 ng/mL (26-388); Glucose 215 MG/DL (74-106); Iron 44 UG/DL (65-175); Iron Binding Capacity 150 UG/DL (250-450); Osmolality,Calculated 316.1 MOS/KG (273-304); Potassium 3.8 MMOL/L (3.5-5.1); Sodium 142 MMOL/L (136-145); Total Protein 5.8 G/DL (6.4-8.2)
[2022-06-27 04:22] LABS: Folate 6.25 NG/ML (5.38-24.0)
[2022-06-27] MEDS: ALBUTEROL/IPRATROPIUM 3 ML NEB RESP TX SCH ×3 (07:30→19:29)
[2022-06-27] MEDS: PANTOPRAZOLE 40 MG VIAL IV SCH (08:29)
[2022-06-27] MEDS: LEVOTHYROXINE 25 MCG TABLET PO SCH (08:29)
[2022-06-27] MEDS: ASPIRIN EC 81 MG TABLET PO SCH (08:29)
[2022-06-27] MEDS: SODIUM BICARBONATE 650 MG TABLET PO SCH ×3 (08:29→20:43)
[2022-06-27] MEDS: methylPREDNISolone SOD SUC 40 MG/1 ML VIAL IV SCH ×2 (08:29→20:38)
[2022-06-27] MEDS: FERROUS SULFATE 325 MG TABLET PO SCH ×2 (08:30→20:42)
[2022-06-27] MEDS: MIDAZOLAM 100 MG in SODIUM CHLORIDE 0.9% 80 ML IV PRN (08:30)
[2022-06-27] MEDS: METOPROLOL TARTRATE 50 MG TABLET PO SCH (08:30)
[2022-06-27] MEDS: cefTRIAXone 1,000 MG in SODIUM CHLORIDE 0.9% 100 ML IV SCH (13:25)
[2022-06-27] MEDS: AZITHROMYCIN INJ 500 MG in SODIUM CHLORIDE 0.9% 250 ML IV SCH (13:26)
[2022-06-27] MEDS: SIMVASTATIN 40 MG TABLET PO SCH (20:44)
[2022-06-27] MEDS ORDERED: INSULIN GLARGINE 100 UNIT/ML SUBCUT SCH (21:00)
[2022-06-28] MEDS: ALBUTEROL/IPRATROPIUM 3 ML NEB RESP TX SCH ×3 (00:07→13:39)
[2022-06-28] MEDS: INSULIN REGULAR 100 UNIT/ML SUBCUT SCH ×5 (00:34→16:15)
[2022-06-28] MEDS: MIDAZOLAM 100 MG in SODIUM CHLORIDE 0.9% 80 ML IV PRN ×2 (00:45→17:15)
[2022-06-28 03:56] LABS: Basophils % 0.1 % (0.0-0.8); Hematocrit 29.5 VOL% (42.0-52.0); Hemoglobin 9.4 GM/DL (14.0-18.0); Immature Granulocytes % 2.4 %; Immature Granulocytes Absolute 0.28 #; Lymphocytes # 0.3 10*3/uL (1.4-4.0); Lymphocytes % 2.4 % (21.2-54.2); Mean Corpuscular HGB Conc 31.9 GM/DL (32-36); Mean Corpuscular Volume 83.3 FL (87-102); Monocytes # 0.4 10*3/uL (0.11-0.8); Monocytes % 3.2 % (1.7-12.7); Neutrophils % 91.9 % (38.7-73.9); Platelet Count 47 T/CUMM (130-400); Red Blood Count 3.54 MC/CUMM (3.8-5.5); Red Cell Distribution Width 19.8 % (9.3-17.3); White Blood Count 11.8 T/CUMM (4-12)
[2022-06-28 03:57] LABS: ABG Base Excess 0.4 MMOL/L (-2.5-2.5); ABG HCO3 24.8 MMOL/L (20-26); ABG Oxygen Saturation 98.5 % (95-100); ABG PCO2 36.1 MM HG (35-48); ABG PH 7.437 (7.35-7.45); ABG TCO2 22.3 MMOL/L (23-27)
[2022-06-28 04:11] LABS: Calcium 7.2 MG/DL (8.5-10.1); Osmolality,Calculated 328.4 MOS/KG (273-304); Potassium 3.7 MMOL/L (3.5-5.1)
[2022-06-28 04:19] LABS: Band Neutrophils 1 % (0-10); Lymphocytes 1 % (20-55); Total Cells Counted 100
[2022-06-28 04:20] LABS: Hypochromia Slight; Microcytosis Slight; Platelet Estimate Decreased
[2022-06-28] MEDS: PANTOPRAZOLE 40 MG VIAL IV SCH (08:20)
[2022-06-28] MEDS: methylPREDNISolone SOD SUC 40 MG/1 ML VIAL IV SCH (08:20)
[2022-06-28] MEDS ORDERED: ALTEPLASE 2 MG VIAL IV PRN (08:21)
[2022-06-28] MEDS: METOPROLOL TARTRATE 50 MG TABLET PO SCH (08:25)
[2022-06-28] MEDS: FERROUS SULFATE 325 MG TABLET PO SCH (08:25)
[2022-06-28] MEDS: LEVOTHYROXINE 25 MCG TABLET PO SCH (08:25)
[2022-06-28] MEDS: SODIUM BICARBONATE 650 MG TABLET PO SCH ×2 (08:25→15:15)
[2022-06-28] MEDS: ASPIRIN EC 81 MG TABLET PO SCH (08:25)
[2022-06-28] MEDS: AZITHROMYCIN INJ 500 MG in SODIUM CHLORIDE 0.9% 250 ML IV SCH (12:20)
[2022-06-28] MEDS: cefTRIAXone 1,000 MG in SODIUM CHLORIDE 0.9% 100 ML IV SCH (12:20)
[2022-06-28 19:20] VITALS: BP 92/55
== END 2022-06-28 18:50 | DRG 207 ==
LOC: N.TELES → SUATTDRO 20:25 → N.ICU 06-22 08:22
PROVIDERS: ADMIT Internal Medicine; ATTEND Family Medicine